=== PATIENT | male | born 1955 | race Caucasian/White ===

== ENCOUNTER 2019-08-25 07:37 | Outpatient (CLI) | payer OTHER, SELFPAY ==
[2019-08-25 07:47] LABS: Add Urine Microscopic? NO; Appearance Urine Clear (Clear); Basophils Absolute Auto 0.06 K/mm3 (0.00-0.10); Basophils Percent Auto 0.9 % (0.0-1.0); Bilirubin Urine Negative (Negative); Blood Urine Negative (Negative); Color Urine Yellow (Yellow); Eosinophils Absolute Auto 0.28 K/mm3 (0.02-0.50); Eosinophils Percent Auto 4.4 % (1.0-6.0); Glucose Urine UA Negative (Negative); Hematocrit 40.2 % (40.0-54.0); Hemoglobin 13.6 g/dL (14.0-18.0); Immature Granulocyte Absolute 0.02 K/mm3 (0.00-0.00); Immature Granulocyte Percent A 0.3 % (0.0-0.0); Ketones Urine Negative (Negative); Leukocyte Esterase Ur Negative (Negative); Lymphocytes Absolute Auto 1.75 K/mm3 (1.10-4.50); Lymphocytes Percent Auto 27.5 % (18.0-42.0); Mean Corpuscular HGB Conc 33.8 g/dL (32.0-36.0); Mean Corpuscular Hemoglobin 30.1 pg (27.0-31.0); Mean Corpuscular Volume 88.9 fL (78.0-102.0); Mean Platelet Volume 8.9 fl (8.7-11.0); Monocytes Absolute Auto 0.57 K/mm3 (0.10-0.90); Monocytes Percent Auto 8.9 % (2.0-11.0); Neutrophils Absolute Auto 3.7 K/mm3 (1.7-7.2); Nitrate Urine Negative (Negative); Platelet Count Result 145 K/mm3 (150-420); Protein Urine Negative (Negative); Red Blood Count 4.52 M/mm3 (4.70-6.10); Red Cell Distribution Width 12.1 % (11.6-14.4); Specific Grav Ur 1.015 (1.010-1.020); Urobilinogen Urine 0.2 mg/dL (0.2-1.0); White Blood Count 6.4 K/mm3 (4.8-10.8)
[2019-08-25 08:16] LABS: BNP 74.4 pg/mL (0-100)
[2019-08-25 08:54] LABS: Alanine Aminotransferase 26 U/L (16-63); Albumin Level 3.3 g/dL (3.4-5.0); Alkaline Phosphatase 57 U/L (46-116); Aspartate Amino Transferase 21 U/L (15-37); Bilirubin,Total 0.5 mg/dL (0.00-1.00); Blood Urea Nitrogen 16 mg/dL (7-18); Calcium 8.2 mg/dL (8.5-10.1); Carbon Dioxide 29 mmol/L (21-32); Chloride 106 mmol/L (98-108); Cholesterol 157 mg/dL (0-200); Creatine Kinase 167 U/L (39-308); Estimated Glomerular Filt Rate > 60; Glucose 97 mg/dL (70-99); HDL Direct 56 mg/dL (40-60); LDL Cholesterol Calculated 87 mg/dL (<130); Osmolality Calculated 295 mOsm/kg (285-295); Sodium 142 mmol/L (136-145); Total Protein 5.9 g/dL (6.4-8.2); Triglycerides 70 mg/dL (0-150)
== END 2019-08-25 07:38 | disposition home or self-care (01) ==
LOC: CHSLAB 07:39
PROVIDERS: PCP Internal Medicine; Visit Provider Internal Medicine
DX: E78.2 Mixed hyperlipidemia (principal); I10 Essential (primary) hypertension; R73.01 Impaired fasting glucose; I42.9 Cardiomyopathy, unspecified
CPT/HCPCS: 36415; 80053; 80061; 81003; 82550; 83036; 83880; 85025

== ENCOUNTER 2019-12-02 12:17 | Outpatient (CLI) | payer OTHER, SELFPAY ==
[2019-12-02 12:33] LABS: Basophils Absolute Auto 0.06 K/mm3 (0.00-0.10); Basophils Percent Auto 0.9 % (0.0-1.0); Eosinophils Absolute Auto 0.46 K/mm3 (0.02-0.50); Eosinophils Percent Auto 6.8 % (1.0-6.0); Hematocrit 42.2 % (40.0-54.0); Hemoglobin 14.2 g/dL (14.0-18.0); Immature Granulocyte Absolute 0.03 K/mm3 (0.00-0.00); Immature Granulocyte Percent A 0.4 % (0.0-0.0); Lymphocytes Absolute Auto 1.67 K/mm3 (1.10-4.50); Lymphocytes Percent Auto 24.8 % (18.0-42.0); Mean Corpuscular HGB Conc 33.6 g/dL (32.0-36.0); Mean Corpuscular Hemoglobin 30.1 pg (27.0-31.0); Mean Corpuscular Volume 89.4 fL (78.0-102.0); Mean Platelet Volume 9.2 fl (8.7-11.0); Monocytes Absolute Auto 0.57 K/mm3 (0.10-0.90); Monocytes Percent Auto 8.5 % (2.0-11.0); Neutrophils Absolute Auto 3.9 K/mm3 (1.7-7.2); Neutrophils Percent Auto 58.6 % (50.0-70.0); Platelet Count Result 187 K/mm3 (150-420); Red Blood Count 4.72 M/mm3 (4.70-6.10); Red Cell Distribution Width 12.2 % (11.6-14.4); White Blood Count 6.7 K/mm3 (4.8-10.8)
== END 2019-12-02 12:18 | disposition home or self-care (01) ==
LOC: CHSLAB 12:19
PROVIDERS: PCP Internal Medicine; Visit Provider Internal Medicine
DX: D63.8 Anemia in other chronic diseases classified elsewhere (principal)
CPT/HCPCS: 36415; 85025

== ENCOUNTER 2020-02-24 08:57 | Outpatient (CLI) | payer OTHER, SELFPAY ==
[2020-02-24 09:10] LABS: Basophils Absolute Auto 0.07 K/mm3 (0.00-0.10); Basophils Percent Auto 1.1 % (0.0-1.0); Eosinophils Absolute Auto 0.32 K/mm3 (0.02-0.50); Eosinophils Percent Auto 5.1 % (1.0-6.0); Hematocrit 40.5 % (40.0-54.0); Hemoglobin 13.7 g/dL (14.0-18.0); Immature Granulocyte Absolute 0.01 K/mm3 (0.00-0.00); Immature Granulocyte Percent A 0.2 % (0.0-0.0); Lymphocytes Absolute Auto 1.72 K/mm3 (1.10-4.50); Lymphocytes Percent Auto 27.4 % (18.0-42.0); Mean Corpuscular HGB Conc 33.8 g/dL (32.0-36.0); Mean Corpuscular Hemoglobin 29.7 pg (27.0-31.0); Mean Corpuscular Volume 87.9 fL (78.0-102.0); Mean Platelet Volume 9.3 fl (8.7-11.0); Monocytes Absolute Auto 0.73 K/mm3 (0.10-0.90); Monocytes Percent Auto 11.6 % (2.0-11.0); Neutrophils Absolute Auto 3.4 K/mm3 (1.7-7.2); Neutrophils Percent Auto 54.6 % (50.0-70.0); Platelet Count Result 152 K/mm3 (150-420); Red Blood Count 4.61 M/mm3 (4.70-6.10); Red Cell Distribution Width 12.4 % (11.6-14.4); White Blood Count 6.3 K/mm3 (4.8-10.8)
[2020-02-24 09:13] LABS: Add Urine Microscopic? NO; Appearance Urine Clear (Clear); Bilirubin Urine Negative (Negative); Blood Urine Negative (Negative); Color Urine Yellow (Yellow); Glucose Urine UA Negative (Negative); Ketones Urine Negative (Negative); Leukocyte Esterase Ur Negative LEU/UL (Negative); Nitrate Urine Negative (Negative); Protein Urine Negative (Negative); Urobilinogen Urine 0.2 mg/dL (0.2-1.0); pH Urine 5.5 (5.0-8.0)
[2020-02-24 09:31] LABS: BNP 16.2 pg/mL (0-100)
[2020-02-24 09:34] LABS: Hemoglobin A1C 5.8 % (<5.7)
[2020-02-24 09:54] LABS: MALB Creatinine Ratio 1.3 mg/g (0-30); Microalbumin Urine Random < 1.3 mg/L
[2020-02-24 10:07] LABS: Alanine Aminotransferase 31 U/L (16-63); Albumin Level 3.6 g/dL (3.4-5.0); Alkaline Phosphatase 57 U/L (46-116); Anion Gap 7 mmol/L (8-16); Aspartate Amino Transferase 20 U/L (15-37); Bilirubin,Total 0.7 mg/dL (0.00-1.00); Blood Urea Nitrogen 18 mg/dL (7-18); Calcium 8.6 mg/dL (8.5-10.1); Carbon Dioxide 29 mmol/L (21-32); Chloride 104 mmol/L (98-108); Cholesterol 172 mg/dL (0-200); Creatine Kinase 240 U/L (39-308); Estimated Glomerular Filt Rate > 60; Glucose 99 mg/dL (70-99); HDL Direct 57 mg/dL (40-60); LDL Cholesterol Calculated 98 mg/dL (<130); Osmolality Calculated 291 mOsm/kg (285-295); Potassium 4.3 mmol/L (3.5-5.1); Prostate Specific Antigen 0.8 ng/mL (< OR = 4.0); Sodium 140 mmol/L (136-145); Total Protein 6.5 g/dL (6.4-8.2); Triglycerides 83 mg/dL (0-150)
== END 2020-02-24 08:58 | disposition home or self-care (01) ==
LOC: CHSLAB 08:59
PROVIDERS: PCP Internal Medicine; Visit Provider Internal Medicine
DX: E78.5 Hyperlipidemia, unspecified (principal); I10 Essential (primary) hypertension; R73.01 Impaired fasting glucose; D63.8 Anemia in other chronic diseases classified elsewhere; Z12.5 Encounter for screening for malignant neoplasm of prostate; I42.9 Cardiomyopathy, unspecified
CPT/HCPCS: 36415; 80053; 80061; 81003; 82043; 82550; 83036; 83880; 84153; 85025; G0103

== ENCOUNTER 2020-05-16 11:28 | Outpatient (CLI) | payer OTHER, SELFPAY ==
[2020-05-16] MEDS: diphenhydrAMINE HCl CAP 25 MG CAPSULE PO (13:19)
[2020-05-16] MEDS: ACETAMINOPHEN 325 MG TABLET 650 MG PO (13:19)
[2020-05-16] MEDS: FAMOTIDINE 20 MG TABLET PO (13:20)
[2020-05-16 13:30] VITALS: BP 108/78; PULSE 62; RESP 18; TEMP 36.6; O2SAT 97
[2020-05-16] MEDS: [UNRECOGNIZED DRUG - OTHER] 250 MG IVPB (13:30)
[2020-05-16 14:35] VITALS: BP 124/78; PULSE 62; RESP 16; TEMP 36.6; O2SAT 95
[2020-05-16 15:20] VITALS: BP 118/70; PULSE 62; RESP 18; TEMP 36.8; O2SAT 97
== END 2020-05-16 11:29 | disposition home or self-care (01) ==
LOC: CHSTREATRM 11:30
PROVIDERS: PCP Internal Medicine; Visit Provider Internal Medicine
DX: Z23 Encounter for immunization (principal); U07.1 COVID-19
CPT/HCPCS: A9270; J7050; M0239; M0243; Q0243

== ENCOUNTER 2020-05-30 12:53 | Outpatient (CLI) | payer OTHER, SELFPAY ==
--- NOTE | ~2020-05-30 | CT_ITS ---
EXAMINATION: CTA chest PE protocol DATE: 05/30/2020 16:56 INDICATION: Shortness of breath, cough. Elevated d-dimer. Recent Covid diagnosis. TECHNIQUE: Computed tomography angiography (CTA) of the chest was performed with 100 mL Omnipaque-350 intravenous contrast timed to evaluate the pulmonary arteries. Coronal maximum intensity projection 3D-reconstructions were created by the technologist. Automated exposure control and iterative reconst ruction technique were employed. Exam dose: 494.85 mGy-cm total exam DLP. COMPARISON: 05/30/2020 2 view chest 04/28/2018 CT thorax FINDINGS: There is diagnostic contrast enhancement of the pulmonary arteries and no evidence of pulmo nary embolism. No thoracic aortic aneurysm or dissection. Normal heart size. Coronary artery calcification. No pericardial effusion. Left-sided pacemaker device with leads in right atrium, right ventricle and coronary sinus. No hilar or mediastinal mass lesion or lymphadenopathy. Emphysematous changes are again noted. Bullous changes noted in the apices and upper lungs in particu lar, right greater than left. Mild atelectasis in the dependent lower lobes. Small sliding hiatal hernia. Normal morphology of the adrenal glands. IMPRESSION: No CT evidence for pulmonary embolus a Emphysema Triple lead left-sided pacemaker device Small sliding hiatal hernia Reviewed, dictated and finalized at [facility]. Reviewed, dictated and finalized at location A.
--- NOTE | ~2020-05-30 | XR_ITS ---
XR chest 2V DATE: 05/30/2020 13:28 INDICATION: Shortness of breath TECHNIQUE: 2 views COMPARISON: 06/06/2015 2 view chest 04/28/2018 CT thorax FINDINGS: Moderate bilateral hyperinflation consistent with COPD. No pulmonary infiltrate or consolid ation, pleural effusion or pulmonary vascular congestion or pneumothorax. Normal heart size. Left-sided defibrillator/pacemaker device with leads overlying right atrium, right ventricle and coronary sinus. Diffuse osteopenia. IMPRESSION: COPD Triple lead defibrillator/pacemaker device Reviewed, dictated and finalized at location A.
[2020-05-30 13:12] LABS: Basophils Absolute Auto 0.07 K/mm3 (0.00-0.10); Basophils Percent Auto 1.1 % (0.0-1.0); Eosinophils Absolute Auto 0.27 K/mm3 (0.02-0.50); Eosinophils Percent Auto 4.4 % (1.0-6.0); Hematocrit 41.5 % (40.0-54.0); Hemoglobin 13.8 g/dL (14.0-18.0); Immature Granulocyte Absolute 0.02 K/mm3 (0.00-0.00); Immature Granulocyte Percent A 0.3 % (0.0-0.0); Lymphocytes Absolute Auto 1.54 K/mm3 (1.10-4.50); Lymphocytes Percent Auto 25.2 % (18.0-42.0); Mean Corpuscular HGB Conc 33.3 g/dL (32.0-36.0); Mean Corpuscular Hemoglobin 29.1 pg (27.0-31.0); Mean Corpuscular Volume 87.6 fL (78.0-102.0); Mean Platelet Volume 9.2 fl (8.7-11.0); Monocytes Absolute Auto 0.57 K/mm3 (0.10-0.90); Monocytes Percent Auto 9.3 % (2.0-11.0); Neutrophils Absolute Auto 3.7 K/mm3 (1.7-7.2); Neutrophils Percent Auto 59.7 % (50.0-70.0); Platelet Count Result 226 K/mm3 (150-420); Red Blood Count 4.74 M/mm3 (4.70-6.10); Red Cell Distribution Width 12.2 % (11.6-14.4); White Blood Count 6.1 K/mm3 (4.8-10.8)
[2020-05-30 13:23] LABS: Add Urine Microscopic? NO; Appearance Urine Clear (Clear); Bilirubin Urine Negative (Negative); Blood Urine Negative (Negative); Color Urine Yellow (Yellow); Glucose Urine UA Negative (Negative); Ketones Urine Negative (Negative); Leukocyte Esterase Ur Negative (Negative); Nitrate Urine Negative (Negative); Protein Urine Negative (Negative); Urobilinogen Urine 0.2 mg/dL (0.2-1.0)
[2020-05-30 13:28] LABS: Alanine Aminotransferase 26 U/L (16-63); Albumin Level 3.3 g/dL (3.4-5.0); Alkaline Phosphatase 70 U/L (46-116); Anion Gap 7 mmol/L (8-16); Aspartate Amino Transferase 17 U/L (15-37); Bilirubin,Total 0.6 mg/dL (0.00-1.00); Blood Urea Nitrogen 13 mg/dL (7-18); Carbon Dioxide 29 mmol/L (21-32); Chloride 102 mmol/L (98-108); Estimated Glomerular Filt Rate > 60; Glucose 104 mg/dL (70-99); Osmolality Calculated 286 mOsm/kg (285-295); Potassium 4.4 mmol/L (3.5-5.1); Sodium 138 mmol/L (136-145)
[2020-05-30 13:30] LABS: BNP 54.7 pg/mL (0-100)
[2020-05-30 13:31] LABS: D Dimer 0.91 mg/L (0.19-0.50)
== END 2020-05-30 12:54 | disposition home or self-care (01) ==
PROVIDERS: PCP Internal Medicine; Visit Provider Internal Medicine
DX: R06.02 Shortness of breath (principal); Z86.16 Personal history of COVID-19; R79.1 Abnormal coagulation profile; R53.81 Other malaise; R10.9 Unspecified abdominal pain
CPT/HCPCS: 36415; 71046; 71275; 80053; 81003; 83880; 85025; 85380; Q9967

== ENCOUNTER 2020-06-27 12:32 | Outpatient (CLI) | payer OTHER, SELFPAY ==
--- NOTE | ~2020-06-27 | XR_ITS ---
EXAMINATION: XR chest 2V DATE: 06/27/2020 17:36 INDICATION: Shortness of breath. Cough. COVID-19 pneumonia in April. TECHNIQUE: Frontal and lateral views of the chest were obtained. COMPARISON: Chest 2 views 05/30/2020, chest CT 05/30/2020 FINDINGS: The lungs are hyperexpanded with lucencies, consistent with emphysema. There is mild scarri ng at the lung apices. A calcified right lung nodule is consistent with old granulomatous disease. No pleural effusion or pneumothorax. The heart size is normal. There is a left chest pacer/defibrillato r with leads in the right atrium, right ventricle, and coronary sinus. There are suture anchors in ri ght glenoid. IMPRESSION: 1. Emphysema with mild scarring at the lung apices. Reviewed, dictated and finalized at location B.
[2020-06-27 13:27] LABS: Influenza A QL RT-PCR Negative (Negative); Influenza B QL RT-PCR Negative (Negative); SARS-CoV-2 RNA PCR Negative (Negative)
[2020-06-27 17:30] LABS: Add Urine Microscopic? YES; Appearance Urine Clear (Clear); Basophils Absolute Auto 0.05 K/mm3 (0.00-0.10); Basophils Percent Auto 0.7 % (0.0-1.0); Bilirubin Urine Negative (Negative); Blood Urine Negative (Negative); Color Urine Yellow (Yellow); Eosinophils Absolute Auto 0.44 K/mm3 (0.02-0.50); Glucose Urine UA 1+ (Negative); Hematocrit 40.5 % (40.0-54.0); Hemoglobin 13.7 g/dL (14.0-18.0); Immature Granulocyte Absolute 0.03 K/mm3 (0.00-0.00); Immature Granulocyte Percent A 0.4 % (0.0-0.0); Ketones Urine Negative (Negative); Leukocyte Esterase Ur Negative LEU/UL (Negative); Lymphocytes Absolute Auto 1.11 K/mm3 (1.10-4.50); Lymphocytes Percent Auto 15.1 % (18.0-42.0); Mean Corpuscular HGB Conc 33.8 g/dL (32.0-36.0); Mean Corpuscular Hemoglobin 29.7 pg (27.0-31.0); Mean Corpuscular Volume 87.7 fL (78.0-102.0); Mean Platelet Volume 9.5 fl (8.7-11.0); Monocytes Absolute Auto 0.92 K/mm3 (0.10-0.90); Monocytes Percent Auto 12.5 % (2.0-11.0); Neutrophils Absolute Auto 4.8 K/mm3 (1.7-7.2); Neutrophils Percent Auto 65.3 % (50.0-70.0); Nitrate Urine Negative (Negative); Platelet Count Result 154 K/mm3 (150-420); Protein Urine Negative (Negative); Red Blood Count 4.62 M/mm3 (4.70-6.10); Red Cell Distribution Width 13.1 % (11.6-14.4); Specific Grav Ur 1.015 (1.010-1.020); White Blood Count 7.4 K/mm3 (4.8-10.8)
[2020-06-27 17:41] LABS: Bacteria Urine Trace /hpf; RBC Urine 0-2 /hpf (0-2); WBC Urine 0-3 /hpf (0-3)
[2020-06-27 18:30] LABS: Alanine Aminotransferase 32 U/L (16-63); Albumin Level 3.5 g/dL (3.4-5.0); Alkaline Phosphatase 73 U/L (46-116); Anion Gap 7 mmol/L (8-16); Aspartate Amino Transferase 17 U/L (15-37); Bilirubin,Total 1.1 mg/dL (0.00-1.00); Blood Urea Nitrogen 15 mg/dL (7-18); CRP 7.3 mg/dL (0.0-0.9); Calcium 8.7 mg/dL (8.5-10.1); Carbon Dioxide 29 mmol/L (21-32); Chloride 101 mmol/L (98-108); Estimated Glomerular Filt Rate > 60; Free T3 2.57 pg/mL (2.18-3.98); Free T4 Free Thyroxine 0.89 ng/dL (0.76-1.46); Glucose 96 mg/dL (70-99); NT Pro B Type Natriuretic Pept 95 pg/mL (0-125); Osmolality Calculated 284 mOsm/kg (285-295); Potassium 4.2 mmol/L (3.5-5.1); Sodium 137 mmol/L (136-145); Thyroid Stimulating Hormone 1.31 uIU/mL (0.36-3.74); Total Protein 6.8 g/dL (6.4-8.2); Vitamin B12 393 pg/mL (193-986)
[2020-06-27 18:43] LABS: Erythrocyte Sedimentation Rate 38 mm/hr (0-20)
== END 2020-06-27 12:33 | disposition home or self-care (01) ==
PROVIDERS: PCP Internal Medicine; Visit Provider Internal Medicine
DX: R06.00 Dyspnea, unspecified (principal); R61 Generalized hyperhidrosis; I50.9 Heart failure, unspecified; R26.89 Other abnormalities of gait and mobility; G62.9 Polyneuropathy, unspecified; R50.9 Fever, unspecified; Z20.822 Contact with and (suspected) exposure to COVID-19
CPT/HCPCS: 36415; 71046; 80053; 81001; 82607; 83880; 84439; 84443; 84481; 85025; 85652; 86140; 87502; C9803; U0003; U0005

== ENCOUNTER 2020-06-29 07:08 | Outpatient (CLI) | payer OTHER, SELFPAY ==
--- NOTE | ~2020-06-29 | CT_ITS ---
EXAMINATION: CT brain wo/w con DATE: 06/29/2020 08:09 INDICATION: Dizziness. Unsteady on feet. Left upper extremity weakness. TECHNIQUE: Computed tomography (CT) of the head was performed without and subsequently with 100 cc Om nipaque 350 intravenous contrast. The mA was adjusted according to patient size. Iterative reconstruc tion technique was employed. Exam dose: 1059.33 mGy-cm total exam DLP. COMPARISON: None FINDINGS: No intracranial mass lesion or hemorrhage or cerebrovascular accident. No midline shift or mass effect. Normal ventricular size. No subdural or epidural hematoma. The mastoid air cells and included paranasal sinuses are unremarkable. No fracture or bone destructio n of the cranial vault IMPRESSION: No significant abnormality Reviewed, dictated and finalized at [facility]. Reviewed, dictated and finalized at location A. IMPRESSION: No significant abnormality
== END 2020-06-29 07:09 | disposition home or self-care (01) ==
LOC: CHSIMG 07:10
PROVIDERS: PCP Internal Medicine; Visit Provider Internal Medicine
DX: R42 Dizziness and giddiness (principal); R26.81 Unsteadiness on feet; G45.9 Transient cerebral ischemic attack, unspecified
CPT/HCPCS: 70470; Q9967

== ENCOUNTER 2020-07-10 07:48 | Outpatient (CLI) | payer OTHER, SELFPAY ==
--- NOTE | 2020-07-10 07:55 | ECHO_ITS ---
Patient Info Name: Jhon Saldana Age: 65 years : 1955 Gender: Male Ht: 70 in Wt: 175 lbs BSA: 1.99 m2 HR: 64 bpm BP: 115 / 87 mmHg Heart Rhythm: Sinus Rhythm Technical Quality: Fair Exam Date: 07/10/2020 7:47 AM Exam Location: [facility] Patient Status: Outpatient Admit Date: 07/10/2020 Staff Ordering Physician: Sarita Hankins MD Courtesy Bus Driver: Lauryn Fam RDCS Attending Provider: Sarita Hankins MD Referring Physician: Cr JUNG; Exam Type: CA echo doppler color flow Study Info Indications Z95.0 - Presence of cardiac pacemaker I50.9 - Heart failure, unspecified Z86.73 - Personal history of transient ischemic attack (TIA), and cerebral infarction without residual deficits Complete two-dimensional, color flow and Doppler transthoracic echocardiogram is performed. Strain analysis performed. History/Risk Factors Hypertension: Yes Dyslipidemia: Yes Congenital Heart Disease (CHD): No Peripheral Arterial Disease (PAD): No Myocardial Infarction (GA): No Chronic Lung Disease: No Obesity: No Renal Disease: No Coronary Artery Disease (CAD) No Congestive Heart Failure (CHF): Hx CHF Cardiomyopathy/LV Systolic Dysfunction: No Diabetes Mellitus: No COPD: On Meds Tobacco Use: Former Cerebrovascular Disease: TIA Family History: Diabetes Mellitus, Coronary Artery Disease Deep Vein Thrombosis (DVT): None Dialysis: None Frailty Scale (CSHA): 2: Well Cardiac Arrest: No Prior Interventions Pacemaker: Yes Summary 1. Complete two-dimensional, color flow and Doppler transthoracic echocardiogram is performed. 2. Left ventricular chamber dimension is normal. 3. Left ventricular systolic function is normal, estimated at 55-60%. 4. There is mildly increased left ventricular wall thickness. 5. The left ventricular diastolic function is grade I diastolic dysfunction. 6. E/e' 12 is mildly elevated. 7. Global longitudinal strain is abnormal at -13.0%. 8. Linear artifact in right ventricle suggestive of catheter(s), pacemaker lead(s), or ICD lead(s). 9. Linear artifact in the right atrium suggestive of catheter(s), pacemaker lead(s), or ICD lead(s). 10. There is trace aortic valve regurgitation. 11. There is mild mitral valve regurgitation. Left Ventricle E/e' 12 is mildly elevated. Global longitudinal strain is abnormal at -13.0%. Left ventricular chamber dimension is normal. Left ventricular systolic function is normal, estimated at 55-60%. There is mildly increased left ventricular wall thickness. The left ventricular diastolic function is grade I diastolic dysfunction. Right Ventricle Right ventricular systolic function is normal and with normal TAPSE 2.1 cm.. Linear artifact in right ventricle suggestive of catheter(s), pacemaker lead(s), or ICD lead(s). Right ventricular chamber dimension is normal. Left Atria Left atrial chamber dimension is normal. Right Atria Linear artifact in the right atrium suggestive of catheter(s), pacemaker lead(s), or ICD lead(s). Right atrial chamber dimension is normal. Aortic Valve The aortic valve is trileaflet. There is no aortic valve stenosis. There is trace aortic valve regurgitation. Pulmonic Valve There is no pulmonic regurgitation. Mitral Valve There is no mitral valve stenosis. There is mild mitral valve regurgitation. Tricuspid Valve There is no tricuspid valve regurgitation.
--- NOTE | 2020-08-10 11:49 | WPDHOLTEREM ---
Holter/Event Monitor Holter/Event Monitor Date of procedure: 07/10/20 Holter/Event Procedure: Event Monitor Indications: TIA Conclusion: 1. 23 days event monitor between 07/10/20-08/08/20. There are 22 available transmissions for analysis. 2. Predominant rhythm is sinus rhythm with intermittent ventricular paced complexes. HR range 50-120 bpm; average 66 bpm. 3. There are intermittent premature supraventricular complexes with total burden of 3%. No supraventricular tachycardia. 4. There are frequent premature ventricular complexes with total burden of 12%. No ventricular tachycardia. 5. No significant pauses greater than 2 seconds. 6. Patient reports 3 episodes of symptoms of lightheadedness, dizziness and shortness of breath which demonstrate sinus rhythm, HR range 77-88 bpm.
== END 2020-07-10 07:49 | disposition home or self-care (01) ==
LOC: CHSIMG 07:50
PROVIDERS: PCP Internal Medicine; Visit Provider Internal Medicine
DX: G45.9 Transient cerebral ischemic attack, unspecified (principal); Z95.0 Presence of cardiac pacemaker; I50.9 Heart failure, unspecified
CPT/HCPCS: 93270; 93272; 93306

== ENCOUNTER 2020-09-29 08:21 | Outpatient (CLI) | payer OTHER, SELFPAY ==
[2020-09-29 08:35] LABS: Add Urine Microscopic? NO; Appearance Urine Clear (Clear); Basophils Absolute Auto 0.07 K/mm3 (0.00-0.10); Bilirubin Urine Negative (Negative); Blood Urine Negative (Negative); Color Urine Light Yellow (Yellow); Eosinophils Absolute Auto 0.55 K/mm3 (0.02-0.50); Eosinophils Percent Auto 7.5 % (1.0-6.0); Glucose Urine UA Negative (Negative); Hematocrit 42.4 % (40.0-54.0); Hemoglobin 14.3 g/dL (14.0-18.0); Immature Granulocyte Absolute 0.02 K/mm3 (0.00-0.00); Immature Granulocyte Percent A 0.3 % (0.0-0.0); Ketones Urine Negative (Negative); Leukocyte Esterase Ur Negative LEU/UL (Negative); Lymphocytes Absolute Auto 2.03 K/mm3 (1.10-4.50); Lymphocytes Percent Auto 27.6 % (18.0-42.0); Mean Corpuscular HGB Conc 33.7 g/dL (32.0-36.0); Mean Corpuscular Hemoglobin 30.1 pg (27.0-31.0); Mean Corpuscular Volume 89.3 fL (78.0-102.0); Mean Platelet Volume 9.3 fl (8.7-11.0); Monocytes Absolute Auto 0.65 K/mm3 (0.10-0.90); Monocytes Percent Auto 8.8 % (2.0-11.0); Neutrophils Percent Auto 54.8 % (50.0-70.0); Nitrate Urine Negative (Negative); Platelet Count Result 152 K/mm3 (150-420); Protein Urine Negative (Negative); Red Blood Count 4.75 M/mm3 (4.70-6.10); Urobilinogen Urine 0.2 mg/dL (0.2-1.0); White Blood Count 7.4 K/mm3 (4.8-10.8)
[2020-09-29 09:04] LABS: Creatinine Urine 56.81 mg/dL (40-278); MALB Creatinine Ratio 22.8 mg/g (0-30); Microalbumin Urine Random < 13.0 mg/L
[2020-09-29 09:05] LABS: Hemoglobin A1C 5.8 % (<5.7)
[2020-09-29 09:36] LABS: Alanine Aminotransferase 33 U/L (16-63); Albumin Level 3.8 g/dL (3.4-5.0); Alkaline Phosphatase 62 U/L (46-116); Anion Gap 10 mmol/L (8-16); Aspartate Amino Transferase 19 U/L (15-37); Bilirubin,Total 0.8 mg/dL (0.00-1.00); Blood Urea Nitrogen 18 mg/dL (7-18); Calcium 8.6 mg/dL (8.5-10.1); Carbon Dioxide 26 mmol/L (21-32); Chloride 105 mmol/L (98-108); Cholesterol 164 mg/dL (0-200); Estimated Glomerular Filt Rate > 60; Glucose 95 mg/dL (70-99); HDL Direct 59 mg/dL (40-60); LDL Cholesterol Calculated 88 mg/dL (<130); Osmolality Calculated 293 mOsm/kg (285-295); Potassium 4.1 mmol/L (3.5-5.1); Sodium 141 mmol/L (136-145); Total Protein 6.7 g/dL (6.4-8.2); Triglycerides 85 mg/dL (0-150)
== END 2020-09-29 08:22 | disposition home or self-care (01) ==
LOC: CHSLAB 08:24
PROVIDERS: PCP Internal Medicine; Visit Provider Internal Medicine
DX: R73.01 Impaired fasting glucose (principal); I10 Essential (primary) hypertension; E78.2 Mixed hyperlipidemia
CPT/HCPCS: 36415; 80053; 80061; 81003; 82043; 83036; 85025

== ENCOUNTER 2021-02-23 07:25 | Outpatient (CLI) | payer OTHER, SELFPAY ==
[2021-02-23 07:41] LABS: Add Urine Microscopic? NO; Appearance Urine Clear (Clear); Basophils Absolute Auto 0.09 K/mm3 (0.00-0.10); Basophils Percent Auto 1.3 % (0.0-1.0); Bilirubin Urine Negative (Negative); Blood Urine Negative (Negative); Color Urine Light Yellow (Yellow); Eosinophils Absolute Auto 0.51 K/mm3 (0.02-0.50); Eosinophils Percent Auto 7.4 % (1.0-6.0); Glucose Urine UA Negative (Negative); Hematocrit 45.2 % (40.0-54.0); Immature Granulocyte Absolute 0.02 K/mm3 (0.00-0.00); Immature Granulocyte Percent A 0.3 % (0.0-0.0); Ketones Urine Negative (Negative); Leukocyte Esterase Ur Negative (Negative); Lymphocytes Absolute Auto 1.72 K/mm3 (1.10-4.50); Lymphocytes Percent Auto 24.9 % (18.0-42.0); Mean Corpuscular HGB Conc 33.2 g/dL (32.0-36.0); Mean Corpuscular Hemoglobin 29.7 pg (27.0-31.0); Mean Corpuscular Volume 89.5 fL (78.0-102.0); Mean Platelet Volume 9.5 fl (8.7-11.0); Monocytes Absolute Auto 0.68 K/mm3 (0.10-0.90); Monocytes Percent Auto 9.9 % (2.0-11.0); Neutrophils Absolute Auto 3.9 K/mm3 (1.7-7.2); Neutrophils Percent Auto 56.2 % (50.0-70.0); Nitrate Urine Negative (Negative); Platelet Count Result 176 K/mm3 (150-420); Protein Urine Negative (Negative); Red Blood Count 5.05 M/mm3 (4.70-6.10); Specific Grav Ur 1.015 (1.010-1.020); Urobilinogen Urine 0.2 mg/dL (0.2-1.0); White Blood Count 6.9 K/mm3 (4.8-10.8)
[2021-02-23 07:51] LABS: Hemoglobin A1C 5.9 % (<5.7)
[2021-02-23 09:14] LABS: Alanine Aminotransferase 28 U/L (16-63); Albumin Level 3.8 g/dL (3.4-5.0); Alkaline Phosphatase 64 U/L (46-116); Anion Gap 8 mmol/L (8-16); Aspartate Amino Transferase 16 U/L (15-37); Bilirubin,Total 0.7 mg/dL (0.00-1.00); Blood Urea Nitrogen 20 mg/dL (7-18); Calcium 8.9 mg/dL (8.5-10.1); Carbon Dioxide 29 mmol/L (21-32); Chloride 102 mmol/L (98-108); Cholesterol 180 mg/dL (0-200); Estimated Glomerular Filt Rate 58; Ferritin 189 ng/mL (26-388); Free T3 3.35 pg/mL (2.18-3.98); Free T4 Free Thyroxine 0.85 ng/dL (0.76-1.46); Glucose 109 mg/dL (70-99); HDL Direct 56 mg/dL (40-60); Iron 77 ug/dL (65-175); LDL Cholesterol Calculated 105 mg/dL (<130); NT Pro B Type Natriuretic Pept 39 pg/mL (0-125); Osmolality Calculated 291 mOsm/kg (285-295); Potassium 4.6 mmol/L (3.5-5.1); Prostate Specific Antigen 0.8 ng/mL (< OR = 4.0); Sodium 139 mmol/L (136-145); Thyroid Stimulating Hormone 1.47 uIU/mL (0.36-3.74); Total Protein 6.9 g/dL (6.4-8.2); Triglycerides 97 mg/dL (0-150); Vitamin B12 515 pg/mL (193-986)
== END 2021-02-23 07:26 | disposition home or self-care (01) ==
LOC: CHSLAB 07:27
PROVIDERS: PCP Internal Medicine; Visit Provider Internal Medicine
DX: D64.9 Anemia, unspecified (principal); I10 Essential (primary) hypertension; E78.2 Mixed hyperlipidemia; R73.01 Impaired fasting glucose; I42.9 Cardiomyopathy, unspecified; Z12.5 Encounter for screening for malignant neoplasm of prostate
CPT/HCPCS: 36415; 80053; 80061; 81003; 82607; 82728; 83036; 83540; 83880; 84153; 84439; 84443; 84481; 85025; G0103

== ENCOUNTER 2021-03-25 10:15 | Outpatient (CLI) | payer OTHER, SELFPAY ==
--- NOTE | ~2021-03-25 | XR_ITS ---
EXAMINATION: XR ribs RT 2V w CXR 2V DATE: 03/25/2021 11:16 INDICATION: Lateral right upper rib pain post fall TECHNIQUE: PA and lateral views of the chest and 3 views of the right ribs were obtained. COMPARISON: Chest radiograph dated 06/27/2020 FINDINGS: Irregular cortical contours to the anterolateral right fourth-sixth ribs which is not evident on pieter ier CT dated 05/30/2020 suspicious for age indeterminate nondisplaced fractures. Unchanged old posteri or right 11th rib fracture. Emphysema with mild biapical pleural-parenchymal scarring. A couple small calcified nodules in the right upper lung zone consistent with old granulomatous disease. No other a irspace opacities, pulmonary edema, pleural effusion or pneumothorax. Cardiomediastinal silhouette is normal. Three lead pacemaker/AICD seen with leads projecting over the expected locations of the righ t atrial appendage, apex of the right ventricle and overlying the left ventricle likely having kalen sed the coronary sinus. Severe right glenohumeral osteoarthritis with suture anchors along the superi or glenoid consistent with prior labral repair. IMPRESSION: 1. Age-indeterminate anterolateral right fourth-sixth rib fractures new since 05/30/2020. 2. Emphysema. No acute cardiopulmonary disease. Reviewed, dictated and finalized at location A. NICAL SUPPORT TECHNICIAN IMPRESSION: 1. Age-indeterminate anterolateral right fourth-sixth rib fractures new since . 2. Emphysema. No acute cardiopulmonary disease.
== END 2021-03-25 10:16 | disposition home or self-care (01) ==
LOC: CHSIMG 10:18
PROVIDERS: PCP Internal Medicine; Visit Provider Internal Medicine
DX: R07.81 Pleurodynia (principal); S29.9XXA Unspecified injury of thorax, initial encounter
CPT/HCPCS: 71046; 71100

== ENCOUNTER 2021-06-18 14:52 | Outpatient (CLI) | payer OTHER, SELFPAY ==
[2021-06-18 15:22] LABS: Basophils Absolute Auto 0.05 K/mm3 (0.00-0.10); Basophils Percent Auto 0.9 % (0.0-1.0); Eosinophils Absolute Auto 0.36 K/mm3 (0.02-0.50); Eosinophils Percent Auto 6.5 % (1.0-6.0); Hematocrit 43.4 % (40.0-54.0); Hemoglobin 14.2 g/dL (14.0-18.0); Immature Granulocyte Absolute 0.02 K/mm3 (0.00-0.00); Immature Granulocyte Percent A 0.4 % (0.0-0.0); Lymphocytes Absolute Auto 1.28 K/mm3 (1.10-4.50); Lymphocytes Percent Auto 23.1 % (18.0-42.0); Mean Corpuscular HGB Conc 32.7 g/dL (32.0-36.0); Mean Corpuscular Hemoglobin 29.4 pg (27.0-31.0); Mean Corpuscular Volume 89.9 fL (78.0-102.0); Mean Platelet Volume 9.6 fl (8.7-11.0); Monocytes Absolute Auto 0.68 K/mm3 (0.10-0.90); Monocytes Percent Auto 12.3 % (2.0-11.0); Neutrophils Absolute Auto 3.2 K/mm3 (1.7-7.2); Neutrophils Percent Auto 56.8 % (50.0-70.0); Platelet Count Result 160 K/mm3 (150-420); Red Blood Count 4.83 M/mm3 (4.70-6.10); Red Cell Distribution Width 12.9 % (11.6-14.4); White Blood Count 5.6 K/mm3 (4.8-10.8)
[2021-06-18 15:45] LABS: Influenza Control Valid (Valid)
[2021-06-18 16:00] LABS: Alanine Aminotransferase 27 U/L (16-63); Albumin Level 3.5 g/dL (3.4-5.0); Alkaline Phosphatase 67 U/L (46-116); Amylase 39 U/L (25-115); Anion Gap 9 mmol/L (8-16); Aspartate Amino Transferase 17 U/L (15-37); Bilirubin,Total 0.9 mg/dL (0.00-1.00); Blood Urea Nitrogen 16 mg/dL (7-18); Calcium 8.3 mg/dL (8.5-10.1); Carbon Dioxide 26 mmol/L (21-32); Chloride 101 mmol/L (98-108); Estimated Glomerular Filt Rate > 60; Glucose 100 mg/dL (70-99); Lipase 116 U/L (73-393); Osmolality Calculated 283 mOsm/kg (285-295); Sodium 136 mmol/L (136-145); Total Protein 6.6 g/dL (6.4-8.2)
[2021-06-18 16:12] LABS: SARS-CoV-2 Ag Negative (Negative)
== END 2021-06-18 14:53 | disposition home or self-care (01) ==
PROVIDERS: PCP Internal Medicine; Visit Provider Internal Medicine
DX: R19.7 Diarrhea, unspecified (principal); R11.2 Nausea with vomiting, unspecified; J06.9 Acute upper respiratory infection, unspecified; Z20.822 Contact with and (suspected) exposure to COVID-19
CPT/HCPCS: 80053; 82150; 83690; 85025; 87426; 87804; C9803

== ENCOUNTER 2021-08-23 07:40 | Outpatient (CLI) | payer OTHER, SELFPAY ==
[2021-08-23 07:50] LABS: Basophils Absolute Auto 0.08 K/mm3 (0.00-0.10); Basophils Percent Auto 1.3 % (0.0-1.0); Eosinophils Absolute Auto 0.49 K/mm3 (0.02-0.50); Eosinophils Percent Auto 7.8 % (1.0-6.0); Hematocrit 43.8 % (40.0-54.0); Hemoglobin 14.6 g/dL (14.0-18.0); Immature Granulocyte Absolute 0.01 K/mm3 (0.00-0.00); Immature Granulocyte Percent A 0.2 % (0.0-0.0); Lymphocytes Absolute Auto 1.77 K/mm3 (1.10-4.50); Lymphocytes Percent Auto 28.2 % (18.0-42.0); Mean Corpuscular HGB Conc 33.3 g/dL (32.0-36.0); Mean Corpuscular Hemoglobin 29.7 pg (27.0-31.0); Mean Corpuscular Volume 89.2 fL (78.0-102.0); Mean Platelet Volume 9.2 fl (8.7-11.0); Monocytes Absolute Auto 0.65 K/mm3 (0.10-0.90); Monocytes Percent Auto 10.4 % (2.0-11.0); Neutrophils Absolute Auto 3.3 K/mm3 (1.7-7.2); Neutrophils Percent Auto 52.1 % (50.0-70.0); Platelet Count Result 172 K/mm3 (150-420); Red Blood Count 4.91 M/mm3 (4.70-6.10); Red Cell Distribution Width 12.9 % (11.6-14.4); White Blood Count 6.3 K/mm3 (4.8-10.8)
[2021-08-23 07:52] LABS: Add Urine Microscopic? NO; Appearance Urine Clear (Clear); Bilirubin Urine Negative (Negative); Blood Urine Negative (Negative); Color Urine Light Yellow (Yellow); Glucose Urine UA Negative (Negative); Ketones Urine Negative (Negative); Leukocyte Esterase Ur Negative (Negative); Nitrate Urine Negative (Negative); Protein Urine Negative (Negative); Urobilinogen Urine 0.2 mg/dL (0.2-1.0)
[2021-08-23 08:07] LABS: Hemoglobin A1C 5.7 % (<5.7)
[2021-08-23 08:16] LABS: Alanine Aminotransferase 30 U/L (16-63); Albumin Level 3.7 g/dL (3.4-5.0); Alkaline Phosphatase 60 U/L (46-116); Anion Gap 3 mmol/L (8-16); Aspartate Amino Transferase 20 U/L (15-37); Blood Urea Nitrogen 17 mg/dL (7-18); Calcium 8.4 mg/dL (8.5-10.1); Carbon Dioxide 31 mmol/L (21-32); Chloride 106 mmol/L (98-108); Cholesterol 177 mg/dL (0-200); Estimated Glomerular Filt Rate > 60; Glucose 101 mg/dL (70-99); HDL Direct 62 mg/dL (40-60); LDL Cholesterol Calculated 94 mg/dL (<130); NT Pro B Type Natriuretic Pept 87 pg/mL (0-125); Osmolality Calculated 291 mOsm/kg (285-295); Potassium 4.4 mmol/L (3.5-5.1); Sodium 140 mmol/L (136-145); Total Protein 6.8 g/dL (6.4-8.2); Triglycerides 104 mg/dL (0-150)
== END 2021-08-23 07:41 | disposition home or self-care (01) ==
LOC: CHSLAB 07:42
PROVIDERS: PCP Internal Medicine; Visit Provider Internal Medicine
DX: R73.01 Impaired fasting glucose (principal); I10 Essential (primary) hypertension; E78.2 Mixed hyperlipidemia; I42.9 Cardiomyopathy, unspecified
CPT/HCPCS: 36415; 80053; 80061; 81003; 83036; 83880; 85025

== ENCOUNTER 2021-09-12 12:29 | Emergency (ER) | payer OTHER, SELFPAY ==
[2021-09-12 12:48] VITALS: BP 121/81; PULSE 78; RESP 20; TEMP 36.3; O2SAT 98
--- NOTE | 2021-09-12 12:55 | ED.DIZZY ---
HPI - Dizziness General Chief Complaint: Dizziness Stated Complaint: low BP, dizzy, headache Time Seen by Provider: 09/12/21 12:39 Source: patient and RN notes reviewed Mode of arrival: ambulatory Limitations: no limitations History of Present Illness MD elicited complaint: lightheadedness Onset (ago): hour(s) (4) Timing: sudden onset Severity: moderate Description: lightheadedness and off-balance History of similar symptoms: Yes Exacerbating factors: standing Relieving factors: rest ( all of his symptoms have resolved since arriving in the ER) Associated symptoms: other ( dizziness headache then blurred vision) Related Data Home Medications Medication Instructions Recorded Confirmed aspirin 81 mg chewable tablet 81 mg PO DAILY 09/12/21 09/12/21 atorvastatin 40 mg tablet 40 mg PO DAILY 09/12/21 09/12/21 bupropion HCl (smoking deter) 150 150 mg PO BID 09/12/21 09/12/21 mg tablet,12 hr sustained-release(smoking deterrent) carvedilol 25 mg tablet 25 mg PO BID 09/12/21 09/12/21 ferrous sulfate 324 mg (65 mg 324 mg PO DAILY 09/12/21 09/12/21 iron) tablet,delayed release fluticasone fur. 100 mcg-umeclid 1 inh inhalation DAILY 09/12/21 09/12/21 62.5 mcg-vilant 25 mcg inhalat.powder (Trelegy Ellipta) lisinopril 10 mg tablet 10 mg PO DAILY 09/12/21 09/12/21 omeprazole 20 mg capsule,delayed 20 mg PO DAILY 09/12/21 09/12/21 release tamsulosin 0.4 mg capsule 0.4 mg PO DAILY 09/12/21 09/12/21 Allergies Allergy/AdvReac Type Severity Reaction Status Date / Time NKDA Allergy Mild Unknown Uncoded 09/12/21 12:57 Review of Systems Review of Systems: All systems reviewed & are unremarkable except as noted in HPI and below PMFSH Past Medical History Medical History (Updated 09/12/21 @ 14:20 by Nasim Moreno MD) BPH (benign prostatic hyperplasia) GERD (gastroesophageal reflux disease) Hyperlipidemia Hypertension Throat cancer Surgical History Surgical History (Updated 09/12/21 @ 13:21 by Nasim Moreno MD) History of permanent cardiac pacemaker placement Family History Family History (Updated 03/03/16 @ 12:31 by DOCTOR UNKNOWN) Other Family history of alcoholism Family history of cardiovascular disease Hypertension Social History Social History Smoking status: Former smoker Smoking end date: 02/16/14 Alcohol intake: current Exam Const: General: healthy appearing, no acute distress and alert Nutritional Appearance: well nourished Orientation/consciousness: patient oriented x3 Limitations: no limitations HENMT: Head: normal to inspection Eyes: Conjunctivae: conjunctivae normal Pupils: Equal, round and reactive pupils present EOM: EOMs intact bilaterally Neck: Neck: normal visual inspection Resp: Effort & Inspection: normal respiratory effort Auscultation: clear to auscultation bilaterally Cardio: Rate: regular rate Rhythm: regular rhythm GI: GI Palp: Yes Soft to palpation and Yes Tenderness to palpation present (GI) Auscultation: normal bowel sounds Back/Spine/Pelvis: Cervical Spine: cervical ROM normal Thoracic/Lumbar Spine: thoraco-lumbar ROM normal Skin: General skin exam: normal color Rashes: no rashes Neuro: General: patient oriented x3, moves all extremities, no focal motor deficits and CN's II-XI intact bilaterally Cranial nerves: Yes Nystagmus not present Speech: normal speech Gait exam (Neuro): Normal gait present Extrem: General: normal to inspection and no clubbing, cyanosis or edema Psych: Mental Status: mental status grossly normal Affect: normal affect Attitude: cooperative Course Course Emergency Course: I offered the patient IV fluid replacement he declined at this time. He says he will go home and increase his fluids. Vital Signs Vital signs: Vital Signs Temperature 36.3 C L 09/12/21 12:48 Pulse Rate 78 09/12/21 12:48 Respiratory Rate 20 09/12/21 12:48 Blood Pressure 121/81 09/12/21 12:48 Pulse Oximetry 98
[2021-09-12 13:21] LABS: Basophils Absolute Auto 0.07 K/mm3 (0.00-0.10); Basophils Percent Auto 0.8 % (0.0-1.0); Eosinophils Absolute Auto 0.31 K/mm3 (0.02-0.50); Eosinophils Percent Auto 3.4 % (1.0-6.0); Hematocrit 42.4 % (40.0-54.0); Hemoglobin 14.4 g/dL (14.0-18.0); Immature Granulocyte Absolute 0.03 K/mm3 (0.00-0.00); Immature Granulocyte Percent A 0.3 % (0.0-0.0); Lymphocytes Absolute Auto 1.25 K/mm3 (1.10-4.50); Lymphocytes Percent Auto 13.8 % (18.0-42.0); Mean Corpuscular Hemoglobin 29.9 pg (27.0-31.0); Mean Corpuscular Volume 88.1 fL (78.0-102.0); Mean Platelet Volume 9.6 fl (8.7-11.0); Monocytes Absolute Auto 0.56 K/mm3 (0.10-0.90); Monocytes Percent Auto 6.2 % (2.0-11.0); Neutrophils Absolute Auto 6.8 K/mm3 (1.7-7.2); Neutrophils Percent Auto 75.5 % (50.0-70.0); Platelet Count Result 172 K/mm3 (150-420); Red Blood Count 4.81 M/mm3 (4.70-6.10); Red Cell Distribution Width 12.6 % (11.6-14.4); White Blood Count 9.1 K/mm3 (4.8-10.8)
[2021-09-12 13:30] VITALS: BP 138/74; PULSE 60; RESP 20; O2SAT 97
[2021-09-12 13:58] LABS: Alanine Aminotransferase 26 U/L (16-63); Albumin Level 4.1 g/dL (3.4-5.0); Alkaline Phosphatase 67 U/L (46-116); Anion Gap 7 mmol/L (8-16); Aspartate Amino Transferase 22 U/L (15-37); Bilirubin,Total 1.3 mg/dL (0.00-1.00); Blood Urea Nitrogen 21 mg/dL (7-18); Calcium 9.1 mg/dL (8.5-10.1); Carbon Dioxide 26 mmol/L (21-32); Chloride 104 mmol/L (98-108); Estimated CRCL calculation 46 ml/min; Estimated Glomerular Filt Rate 47; Glucose 109 mg/dL (70-99); Magnesium 2.4 mg/dL (1.8-2.4); Osmolality Calculated 288 mOsm/kg (285-295); Potassium 4.8 mmol/L (3.5-5.1); Sodium 137 mmol/L (136-145); Thyroid Stimulating Hormone 1.21 uIU/mL (0.36-3.74); Total Protein 7.1 g/dL (6.4-8.2)
[2021-09-12 14:00] VITALS: BP 126/70; PULSE 60; RESP 20; O2SAT 96
[2021-09-12 14:31] VITALS: BP 113/84; PULSE 59; RESP 20; TEMP 36.2; O2SAT 93
== END 2021-09-12 14:32 | disposition home or self-care (01) ==
PROVIDERS: Emergency Provider Emergency Medicine; PCP Internal Medicine
DX: E86.0 Dehydration (principal); K21.9 Gastro-esophageal reflux disease without esophagitis; E78.5 Hyperlipidemia, unspecified; I10 Essential (primary) hypertension; Z87.891 Personal history of nicotine dependence
CPT/HCPCS: 36415; 80053; 83735; 84443; 85025; 99283

== ENCOUNTER 2021-09-13 10:49 | Outpatient (CLI) | payer OTHER, SELFPAY ==
[2021-09-13 11:01] LABS: Add Urine Microscopic? NO; Appearance Urine Clear (Clear); Bilirubin Urine Negative (Negative); Blood Urine Negative (Negative); Color Urine Yellow (Yellow); Glucose Urine UA Negative (Negative); Ketones Urine Negative (Negative); Leukocyte Esterase Ur Negative (Negative); Nitrate Urine Negative (Negative); Protein Urine Negative (Negative); Specific Grav Ur 1.015 (1.010-1.020); Urobilinogen Urine 0.2 mg/dL (0.2-1.0)
[2021-09-13 11:09] LABS: Anion Gap 10 mmol/L (8-16); Blood Urea Nitrogen 17 mg/dL (7-18); Calcium 8.7 mg/dL (8.5-10.1); Carbon Dioxide 26 mmol/L (21-32); Chloride 105 mmol/L (98-108); Estimated Glomerular Filt Rate > 60; Glucose 98 mg/dL (70-99); Osmolality Calculated 293 mOsm/kg (285-295); Potassium 4.8 mmol/L (3.5-5.1); Sodium 141 mmol/L (136-145)
== END 2021-09-13 10:50 | disposition home or self-care (01) ==
LOC: CHSLAB 10:51
PROVIDERS: PCP Internal Medicine; Visit Provider Internal Medicine
DX: E86.0 Dehydration (principal)
CPT/HCPCS: 36415; 80048; 81003

== ENCOUNTER 2021-09-24 10:17 | Outpatient (CLI) | payer OTHER, SELFPAY ==
--- NOTE | ~2021-09-24 | CT_ITS ---
EXAMINATION: CT lung screening DATE: 09/24/2021 10:30 INDICATION: History of tobacco dependence. COPD. TECHNIQUE: Computed tomography (CT) of the chest was performed without intravenous contrast. The dose -length product was 155.38 mGy-cm. Automated exposure control and iterative reconstruction technique were employed. COMPARISON: CT dated 05/30/2020 FINDINGS: Heart size normal. No significant pleural or pericardial effusion. There is atherosclerosis of the aorta, great vessels and coronary arteries. No evidence for aortic aneurysm. Small hiatal her henri. There are a few calcified granulomas of the lungs. The upper abdomen is unremarkable. CT chest d ated 05/30/2020 there is a somewhat linear shaped nodule in the right upper lobe which is new compared with prior examination measuring 1.9 x 0.5 cm on axial images. There is severe emphysema. There is a second nodule in the right upper lobe measuring 7 x 5 mm, new compared with prior examination. No en dobronchial lesions. No pneumothorax. No focal lytic or blastic lesions. No acute osseous abnormality . IMPRESSION: 1. Lung Rads category 4B, very suspicious: Recommend follow-up PET/CT scan. Tissue sampling is also a consideration, although this is less favored due to the severity of emphysema. Reviewed, dictated and finalized at location A. IMPRESSION: 1. Lung Rads category 4B, very suspicious: Recommend follow-up PET/CT scan. Tis mery sampling is also a consideration, although this is less favored due to the severity of emphysema.
== END 2021-09-24 10:18 | disposition home or self-care (01) ==
LOC: CHSIMG 10:18
PROVIDERS: PCP Internal Medicine; Visit Provider Internal Medicine
DX: Z12.2 Encounter for screening for malignant neoplasm of respiratory organs (principal); Z87.891 Personal history of nicotine dependence
CPT/HCPCS: 71271

== ENCOUNTER 2022-09-22 07:29 | Outpatient (CLI) | payer MEDICARE, SELFPAY ==
[2022-09-22 08:24] LABS: Basophils Absolute Auto 0.06 K/mm3 (0.00-0.10); Basophils Percent Auto 0.8 % (0.0-1.0); Eosinophils Absolute Auto 0.44 K/mm3 (0.02-0.50); Hematocrit 46.3 % (37.0-46.0); Hemoglobin 15.2 g/dL (12.4-15.3); Immature Granulocyte Absolute 0.03 K/mm3 (0.00-0.00); Immature Granulocyte Percent A 0.4 % (0.0-0.0); Lymphocytes Absolute Auto 1.61 K/mm3 (1.10-4.50); Lymphocytes Percent Auto 22.1 % (18.0-42.0); Mean Corpuscular HGB Conc 32.8 g/dL (32.0-36.0); Mean Corpuscular Hemoglobin 29.9 pg (27.0-31.0); Mean Corpuscular Volume 91.1 fL (78.0-102.0); Mean Platelet Volume 9.6 fl (8.7-11.0); Monocytes Absolute Auto 0.59 K/mm3 (0.10-0.90); Monocytes Percent Auto 8.1 % (2.0-11.0); Neutrophils Absolute Auto 4.6 K/mm3 (1.7-7.2); Neutrophils Percent Auto 62.6 % (50.0-70.0); Platelet Count Result 184 K/mm3 (150-420); Red Blood Count 5.08 M/mm3 (4.70-6.10); Red Cell Distribution Width 12.8 % (11.6-14.4); White Blood Count 7.3 K/mm3 (4.8-10.8)
[2022-09-22 08:26] LABS: Appearance Urine Clear (Clear); Bilirubin Urine Negative (Negative); Blood Urine Negative (Negative); Color Urine Light Yellow (Yellow); Glucose Urine UA 2+ (Negative); Ketones Urine Negative (Negative); Leukocyte Esterase Ur Negative LEU/UL (Negative); Nitrate Urine Negative (Negative); Protein Urine Negative (Negative); Urobilinogen Urine 0.2 mg/dL (0.2-1.0); pH Urine 5.5 (5.0-8.0)
[2022-09-22 08:32] LABS: Add Urine Microscopic? YES; Bacteria Urine None seen /hpf; RBC Urine None seen /hpf (0-2); WBC Urine None seen /hpf (0-3)
[2022-09-22 08:55] LABS: Alanine Aminotransferase 32 U/L (16-63); Albumin Level 3.6 g/dL (3.4-5.0); Alkaline Phosphatase 64 U/L (46-116); Anion Gap 9 mmol/L (8-16); Aspartate Amino Transferase 15 U/L (15-37); Bilirubin,Total 0.7 mg/dL (0.00-1.00); Blood Urea Nitrogen 21 mg/dL (7-18); Calcium 8.6 mg/dL (8.5-10.1); Carbon Dioxide 27 mmol/L (21-32); Chloride 104 mmol/L (98-108); Cholesterol 183 mg/dL (0-200); Creatine Kinase 74 U/L (39-308); Estimated Glomerular Filt Rate 57; Glucose 115 mg/dL (70-99); HDL Direct 64 mg/dL (40-60); LDL Cholesterol Calculated 87 mg/dL (<130); Osmolality Calculated 294 mOsm/kg (285-295); Potassium 4.3 mmol/L (3.5-5.1); Sodium 140 mmol/L (136-145); Total Protein 6.5 g/dL (6.4-8.2); Triglycerides 160 mg/dL (0-150)
[2022-09-22 08:59] LABS: Hemoglobin A1C 5.1 % (<5.7)
== END 2022-09-22 07:30 | disposition home or self-care (01) ==
LOC: CHSLAB 07:38
PROVIDERS: PCP Internal Medicine; Visit Provider Internal Medicine
DX: R73.01 Impaired fasting glucose (principal); N39.0 Urinary tract infection, site not specified; E78.2 Mixed hyperlipidemia
CPT/HCPCS: 36415; 80053; 80061; 81001; 82550; 83036; 85025

== ENCOUNTER 2022-10-03 10:22 | Outpatient (CLI) | payer MEDICARE, SELFPAY ==
--- NOTE | ~2022-10-03 | US_ITS ---
EXAMINATION: US carotid duplex BI DATE: 10/03/2022 10:45 INDICATION: Bilateral carotid bruits. TECHNIQUE: Grayscale, color Doppler, and pulsed Doppler images of the cervical carotid arteries were obtained. The degree of vessel stenosis is placed in one of the following categories: normal, <50%, 5 0-69%, >=70% but less than near-occlusion, near-occlusion, or total occlusion. Note that percent sten osis relative to normal distal artery lumen diameter is indirectly measured from velocity measurement s as described by Prabhakar, et al. Radiology 2003; 229:340-346. COMPARISON: Ultrasound 03/18/2013 FINDINGS: RIGHT: The right common carotid artery (CCA) peak systolic velocity (PSV) is 91 cm/s. The right internal car otid artery (ICA) PSV is 84 cm/s. The right ICA end-diastolic velocity (EDV) is 28 cm/s. The right IC A/CCA PSV ratio is 0.9. Grayscale and color Doppler images yield an estimate of <50% diameter reducti on from plaque in the ICA. There is antegrade flow in the right vertebral artery. LEFT: The left CCA PSV is 103 cm/s. The left ICA PSV is 77 cm/s. The left ICA EDV is 22 cm/s. The left ICA/ CCA PSV ratio is 0.8. Grayscale and color Doppler images yield an estimate of <50% diameter reduction from plaque in the ICA. There is antegrade flow in the left vertebral artery. IMPRESSION: 1. <50% stenosis in the right internal carotid artery. 2. <50% stenosis in the left internal carotid artery. Reviewed, dictated and finalized at location A.
== END 2022-10-03 10:23 | disposition home or self-care (01) ==
LOC: CHSIMG 10:25
PROVIDERS: PCP Internal Medicine; Visit Provider Internal Medicine
DX: R09.89 Other specified symptoms and signs involving the circulatory and respiratory systems (principal); I65.23 Occlusion and stenosis of bilateral carotid arteries
CPT/HCPCS: 93880

== ENCOUNTER 2023-03-31 07:52 | Outpatient (CLI) | payer MEDICARE, SELFPAY ==
[2023-03-31 08:02] LABS: Appearance Urine Clear (Clear); Basophils Absolute Auto 0.08 K/mm3 (0.00-0.10); Basophils Percent Auto 1.3 % (0.0-1.0); Bilirubin Urine Negative (Negative); Blood Urine Negative (Negative); Color Urine Light Yellow (Yellow); Eosinophils Absolute Auto 0.47 K/mm3 (0.02-0.50); Eosinophils Percent Auto 7.6 % (1.0-6.0); Glucose Urine UA 3+ (Negative); Hematocrit 45.1 % (37.0-46.0); Hemoglobin 14.9 g/dL (12.4-15.3); Immature Granulocyte Absolute 0.02 K/mm3 (0.00-0.00); Immature Granulocyte Percent A 0.3 % (0.0-0.0); Ketones Urine Negative (Negative); Leukocyte Esterase Ur Negative (Negative); Lymphocytes Percent Auto 25.9 % (18.0-42.0); Mean Corpuscular Hemoglobin 29.2 pg (27.0-31.0); Mean Corpuscular Volume 88.4 fL (78.0-102.0); Mean Platelet Volume 9.1 fl (8.7-11.0); Monocytes Absolute Auto 0.62 K/mm3 (0.10-0.90); Neutrophils Absolute Auto 3.4 K/mm3 (1.7-7.2); Neutrophils Percent Auto 54.9 % (50.0-70.0); Nitrate Urine Negative (Negative); Platelet Count Result 159 K/mm3 (150-420); Protein Urine Negative (Negative); Red Cell Distribution Width 12.8 % (11.6-14.4); Urobilinogen Urine 0.2 mg/dL (0.2-1.0); White Blood Count 6.2 K/mm3 (4.8-10.8)
[2023-03-31 08:07] LABS: Add Urine Microscopic? YES; Bacteria Urine None seen /hpf; RBC Urine None seen /hpf (0-2); WBC Urine None seen /hpf (0-3)
[2023-03-31 08:08] LABS: Creatinine Urine 69.28 mg/dL (40-278); MALB Creatinine Ratio 18.7 mg/g (0-30); Microalbumin Urine Random < 13.0 mg/L
[2023-03-31 08:15] LABS: Hemoglobin A1C 5.5 % (<5.7)
[2023-03-31 09:18] LABS: Alanine Aminotransferase 40 U/L (16-63); Albumin Level 3.6 g/dL (3.4-5.0); Alkaline Phosphatase 55 U/L (46-116); Anion Gap 8 mmol/L (8-16); Aspartate Amino Transferase 24 U/L (15-37); Bilirubin,Total 0.9 mg/dL (0.00-1.00); Blood Urea Nitrogen 18 mg/dL (7-18); Calcium 8.5 mg/dL (8.5-10.1); Carbon Dioxide 28 mmol/L (21-32); Chloride 104 mmol/L (98-108); Cholesterol 182 mg/dL (0-200); Creatine Kinase 165 U/L (39-308); Estimated Glomerular Filt Rate > 60; Free T4 Free Thyroxine 0.83 ng/dL (0.76-1.46); Glucose 122 mg/dL (70-99); HDL Direct 62 mg/dL (40-60); LDL Cholesterol Calculated 99 mg/dL (<130); NT Pro B Type Natriuretic Pept 73 pg/mL (0-125); Osmolality Calculated 292 mOsm/kg (285-295); Potassium 4.4 mmol/L (3.5-5.1); Prostate Specific Antigen 1.2 ng/mL (< OR = 4.0); Sodium 140 mmol/L (136-145); Thyroid Stimulating Hormone 1.96 uIU/mL (0.36-3.74); Total Protein 6.4 g/dL (6.4-8.2); Triglycerides 107 mg/dL (0-150)
== END 2023-03-31 07:53 | disposition home or self-care (01) ==
LOC: CHSLAB 07:54
PROVIDERS: PCP Internal Medicine; Visit Provider Internal Medicine
DX: N40.1 Benign prostatic hyperplasia with lower urinary tract symptoms (principal); I42.9 Cardiomyopathy, unspecified; E78.2 Mixed hyperlipidemia; I10 Essential (primary) hypertension; R73.01 Impaired fasting glucose; R06.00 Dyspnea, unspecified; Z12.5 Encounter for screening for malignant neoplasm of prostate
CPT/HCPCS: 36415; 80053; 80061; 81001; 82043; 82550; 83036; 83880; 84153; 84439; 84443; 85025; G0103

== ENCOUNTER 2023-06-16 00:55 | Day surgery (SDC) | payer MEDICARE, SELFPAY ==
[2023-06-02 14:32] VITALS: BMI 26.6
[2023-06-16 09:52] VITALS: BP 147/95; PULSE 63; RESP 18; TEMP 36.4; O2SAT 99
[2023-06-16] MEDS: LACTATED RINGERS 1,000 ML 150 ML IV CONT (10:13)
--- NOTE | 2023-06-16 10:32 | WPDANESEPPF ---
Anes - Initial Pre Proc Eval Procedure: Operation Date: 06/16/23 11:00 Proposed Procedures p Esophagogastroduodenoscopy - Yoni Barron MD Date/Time: 06/16/23 10:32 Surgeon: Yoni Barron MD Pre Op Diagnosis: Multani's Esophagus Patient Data Age: 68 Gender: M Height: 1.78 m Weight: 80.9 kg Last Vital Signs Temp 97.5 F L 06/16/23 09:52 Pulse 63 06/16/23 09:52 Resp 18 06/16/23 09:52 BP 147/95 H 06/16/23 09:52 Pulse Ox 99 06/16/23 09:52 O2 Del Method Room Air 06/16/23 09:52 Allergies Allergy/AdvReac Type Severity Reaction Status Date / Time NKDA Allergy Mild Unknown Uncoded 06/16/23 09:51 Home Medications Medication Instructions Recorded Confirmed Type aspirin 81 mg chewable tablet 81 mg PO DAILY 09/12/21 06/02/23 History atorvastatin 40 mg tablet 40 mg PO DAILY 09/12/21 06/02/23 History bupropion HCl (smoking deter) 150 150 mg PO BID 09/12/21 06/02/23 History mg tablet,12 hr sustained-release(smoking deterrent) carvedilol 25 mg tablet 25 mg PO BID 09/12/21 06/02/23 History ferrous sulfate 324 mg (65 mg 324 mg PO DAILY 09/12/21 06/02/23 History iron) tablet,delayed release fluticasone fur. 100 mcg-umeclid 1 inh inhalation DAILY 09/12/21 06/02/23 History 62.5 mcg-vilant 25 mcg inhalat.powder (Trelegy Ellipta) lisinopril 10 mg tablet 10 mg PO DAILY 09/12/21 06/02/23 History omeprazole 20 mg capsule,delayed 20 mg PO DAILY 09/12/21 06/02/23 History release tamsulosin 0.4 mg capsule 0.4 mg PO DAILY 09/12/21 06/02/23 History dapagliflozin propanediol 10 mg 10 mg PO DAILY 06/02/23 06/16/23 History tablet (Farxiga) Patient hx anesthesia problems: none Family hx anesthesia problems: none Results Review: All pre-operative results and documents have been reviewed as part of the pre-operative evaluation. [facility] Past Medical History Medical History (Updated 09/13/21 @ 00:00 by Jameel Chicas) BPH (benign prostatic hyperplasia) GERD (gastroesophageal reflux disease) Hyperlipidemia Hypertension Throat cancer Surgical History Surgical History (Updated 09/12/21 @ 13:21 by Nasim Moreno, ) History of permanent cardiac pacemaker placement Family History Family History (Updated 03/03/16 @ 12:31 by DOCTOR UNKNOWN) Other Family history of alcoholism Family history of cardiovascular disease Hypertension Social History Social History Smoking status: Former smoker Tobacco type: cigarettes Smoking end date: 02/16/14 Alcohol intake: current Alcohol use details: socially Substance use: never Substance use type: does not use Living arrangements: with family Spiritual care concerns: No Anes - Eval Final PreProcedure Day of Procedure 06/16/23 10:32 Patient weight: normal Heart: regular rate and rhythm Lungs: clear to auscultation Airway: Mallampati scale class II Neurological: alert and oriented Last oral intake: >/= 8 hours ASA classification: III Emergent: no Anesthetic plan: proceed Anesthesia type and monitoring: general GIVS and standard monitoring Results Review: All pre-operative results and documents have been reviewed as part of the pre-operative evaluation. Informed Consent: The patient's anesthetic plan and its attendant risks and benefits were discussed with the patient/family/POA. Questions were solicited and answers provided to the satisfaction of the patient/family/POA.
--- NOTE | 2023-06-16 11:00 | PM.HPGS ---
History of Present Illness History of Present Illness Consent: Risks, benefits, and alternatives have been discussed and questions answered. Patient agrees to proceed with procedure. Chief complaint: Heath's Esophagus Narrative: Jhon Saldana is a 68 year old male with gerd on ppi daily and heath's, last egd about 3 years ago. He is doing ok as long as he is using omeprazole daily Review of Systems Review of Systems: All systems reviewed & are unremarkable except as noted in HPI and below PMFSH Past Medical History Medical History (Updated 06/16/23 @ 11:01 by Yoni Barron MD) Heath esophagus BPH (benign prostatic hyperplasia) GERD (gastroesophageal reflux disease) Hyperlipidemia Hypertension Throat cancer Surgical History Surgical History (Updated 09/12/21 @ 13:21 by Nasim Moreno, ) History of permanent cardiac pacemaker placement Family History Family History (Updated 03/03/16 @ 12:31 by DOCTOR UNKNOWN) Other Family history of alcoholism Family history of cardiovascular disease Hypertension Social History Social History Smoking status: Former smoker Tobacco type: cigarettes Smoking end date: 02/16/14 Alcohol intake: current Alcohol use details: socially Substance use: never Substance use type: does not use Living arrangements: with family Spiritual care concerns: No Meds Home Medications and Allergies Home Medications Medication Instructions Recorded Confirmed Type aspirin 81 mg chewable tablet 81 mg PO DAILY 09/12/21 06/02/23 History atorvastatin 40 mg tablet 40 mg PO DAILY 09/12/21 06/02/23 History bupropion HCl (smoking deter) 150 150 mg PO BID 09/12/21 06/02/23 History mg tablet,12 hr sustained-release(smoking deterrent) carvedilol 25 mg tablet 25 mg PO BID 09/12/21 06/02/23 History ferrous sulfate 324 mg (65 mg 324 mg PO DAILY 09/12/21 06/02/23 History iron) tablet,delayed release fluticasone fur. 100 mcg-umeclid 1 inh inhalation DAILY 09/12/21 06/02/23 History 62.5 mcg-vilant 25 mcg inhalat.powder (Trelegy Ellipta) lisinopril 10 mg tablet 10 mg PO DAILY 09/12/21 06/02/23 History omeprazole 20 mg capsule,delayed 20 mg PO DAILY 09/12/21 06/02/23 History release tamsulosin 0.4 mg capsule 0.4 mg PO DAILY 09/12/21 06/02/23 History dapagliflozin propanediol 10 mg 10 mg PO DAILY 06/02/23 06/16/23 History tablet (Farxiga) Allergies Allergy/AdvReac Type Severity Reaction Status Date / Time NKDA Allergy Mild Unknown Uncoded 06/16/23 09:51 Vital Signs Vital Signs - 24 hr 06/16/23 09:52 Temperature 97.5 F L Pulse Rate 63 Respiratory Rate 18 Blood Pressure 147/95 H Pulse Oximetry 99 Oxygen Delivery Room Air Exam Const: General: comfortable and no acute distress HENMT: Face/Nose/Sinus: Normal nares present Eyes: General: appearance normal, both eyes and all related structures Neck: Neck: no JVD Resp: Auscultation: clear to auscultation bilaterally Cardio: Rate: regular rate Rhythm: regular rhythm GI: Inspection: non-distended GI Palp: Yes Soft to palpation Skin: General skin exam: normal color Neuro: General: gait normal Speech: normal speech Extrem: General: normal to inspection Psych: Mental Status: mental status grossly normal Assessment and Plan Assessment and plan (1) GERD (gastroesophageal reflux disease): Code(s): K21.9 - Gastro-esophageal reflux disease without esophagitis Status: Acute Assessment and Plan: well on ppi (2) Heath esophagus: Code(s): K22.70 - Heath's esophagus without dysplasia Status: Acute Assessment and Plan: egd
[2023-06-16 11:16] VITALS: BP 137/72; PULSE 60; RESP 18; O2SAT 96
[2023-06-16 11:26] VITALS: BP 122/75; PULSE 68; RESP 20; O2SAT 94
[2023-06-16 11:36] VITALS: BP 141/85; PULSE 60; RESP 17; O2SAT 96
== END 2023-06-16 11:39 | disposition home or self-care (01) ==
PROVIDERS: PCP Internal Medicine; Visit Provider Internal Medicine Gastroenterology
PROC: 0DJ08ZZ Inspection of Upper Intestinal Tract, Via Natural or Artificial Opening Endoscopic (ICD-10-PCS; CPT 43235; principal; 2023-06-16 11:00)
DX: K22.70 Barrett's esophagus without dysplasia (principal); K29.70 Gastritis, unspecified, without bleeding; K44.9 Diaphragmatic hernia without obstruction or gangrene; K21.9 Gastro-esophageal reflux disease without esophagitis; I10 Essential (primary) hypertension; E78.5 Hyperlipidemia, unspecified; N40.0 Benign prostatic hyperplasia without lower urinary tract symptoms; Z95.0 Presence of cardiac pacemaker; Z85.819 Personal history of malignant neoplasm of unspecified site of lip, oral cavity, and pharynx; Z87.891 Personal history of nicotine dependence; Z79.84 Long term (current) use of oral hypoglycemic drugs; Z79.82 Long term (current) use of aspirin
CPT/HCPCS: 43239; 88305; J2704; J7120

== ENCOUNTER 2023-09-30 07:32 | Outpatient (CLI) | payer MEDICARE, SELFPAY ==
[2023-09-30 07:48] LABS: Hemoglobin 14.7 g/dL (12.4-15.3); Mean Corpuscular HGB Conc 33.4 g/dL (32-36); Mean Corpuscular Hemoglobin 30.2 pg (27.0-31.0); Mean Corpuscular Volume 90.5 fL (78.0-102.0); Mean Platelet Volume 9.3 fl (8.7-11.0); Platelet Count Result 155 K/mm3 (150-420); Red Blood Count 4.86 M/mm3 (4.70-6.10); Red Cell Distribution Width 12.7 % (11.6-14.4); White Blood Count 6.2 K/mm3 (4.8-10.8)
[2023-09-30 07:49] LABS: Add Urine Microscopic? NO; Appearance Urine Clear (Clear); Bilirubin Urine Negative (Negative); Blood Urine Negative (Negative); Color Urine Light Yellow (Yellow); Glucose Urine UA 3+ (Negative); Ketones Urine Negative (Negative); Leukocyte Esterase Ur Negative (Negative); Nitrate Urine Negative (Negative); Protein Urine Negative (Negative); Specific Grav Ur 1.015 (1.010-1.020); Urobilinogen Urine 0.2 mg/dL (0.2-1.0)
[2023-09-30 08:08] LABS: Hemoglobin A1C 5.8 % (<5.7)
[2023-09-30 09:24] LABS: Alanine Aminotransferase 38 U/L (16-63); Albumin Level 3.5 g/dL (3.4-5.0); Alkaline Phosphatase 63 U/L (46-116); Anion Gap 6 mmol/L (4-12); Aspartate Amino Transferase 26 U/L (15-37); Bilirubin,Total 0.6 mg/dL (0.00-1.00); Blood Urea Nitrogen 17 mg/dL (7-18); Calcium 8.4 mg/dL (8.5-10.1); Carbon Dioxide 28 mmol/L (21-32); Chloride 104 mmol/L (98-108); Cholesterol 153 mg/dL (0-200); Creatine Kinase 219 U/L (39-308); Estimated Glomerular Filt Rate > 60; Free T3 2.97 pg/mL (2.18-3.98); Free T4 Free Thyroxine 0.89 ng/dL (0.76-1.46); Glucose 115 mg/dL (70-99); HDL Direct 60 mg/dL (40-60); LDL Cholesterol Calculated 82 mg/dL (<130); NT Pro B Type Natriuretic Pept 352 pg/mL (0-125); Osmolality Calculated 288 mOsm/kg (285-295); Potassium 4.4 mmol/L (3.5-5.1); Sodium 138 mmol/L (136-145); Thyroid Stimulating Hormone 1.68 uIU/mL (0.36-3.74); Total Protein 6.1 g/dL (6.4-8.2); Triglycerides 55 mg/dL (0-150)
== END 2023-09-30 07:33 | disposition home or self-care (01) ==
LOC: CHSLAB 07:35
PROVIDERS: PCP Internal Medicine; Visit Provider Internal Medicine
DX: I10 Essential (primary) hypertension (principal); E78.2 Mixed hyperlipidemia; R73.01 Impaired fasting glucose; I42.9 Cardiomyopathy, unspecified; I50.9 Heart failure, unspecified
CPT/HCPCS: 36415; 80053; 80061; 81003; 82550; 83036; 83880; 84439; 84443; 84481; 85027

== ENCOUNTER 2024-03-07 15:15 | Emergency (ER) | payer MEDICARE, SELFPAY ==
[2024-03-07] VITALS (8 sets, daily range): BP systolic 100–123; BP diastolic 54–86; PULSE 82–89; RESP 11–20; TEMP 36.7; O2SAT 90–98
--- NOTE | ~2024-03-07 | CT_ITS ---
Clinical indication:Post left upper lobectomy 10 days earlier, now with worsening pain with inspirati on lower COMPARISON: TECHNIQUE: Multiple contiguous axial images of the chest were performed without the administration of intravenous contrast. FINDINGS: LUNG:Postoperative change within the left hemithorax with volume loss. Interval development of a small left-sided pleural effusion. Patchy consolidation is also detected within the base of the left lower lobe. MEDIASTINUM:Postoperative change without significant lymphadenopathy. HEART:AICD wires. The heart is not enlarged. SOFT TISSUES OF THE CHEST: Punctate foci of air tracking along the left pectoralis musculature, and p osteriorly along the latissimus dorsi musculature, likely perioperative. BONES OF THE CHEST: Unremarkable IMPRESSION: Postoperative change with interval development of a small left-sided pleural effusion and patchy cons olidation within the base of the left lower lobe. Reviewed, dictated and finalized at location A. RUMENT TECH IMPRESSION: Postoperative change with interval development of a small left-sided pleural ef fusion and patchy consolidation within the base of the left lower lobe.
--- NOTE | 2024-03-07 15:40 | ECG_ITS ---
Test Date: 2024-03-07 15:51:08 Measurements Intervals Hunter Rate: 86 P: 38 HI: 104 QRS: -45 QRSD: 134 T: 103 QT: 381 QTc: 456 Interpretive Statements ELECTRONIC VENTRICULAR PACEMAKER ABNORMAL RHYTHM ECG No previous ECG available for comparison Electronically Signed On 03-07-2024 17:56:04 PARAOPTOMETRIC by Rafat Andrade M.D.
[2024-03-07 15:56] LABS: Eosinophils Absolute Auto 0.42 K/mm3 (0.02-0.50); Eosinophils Percent Auto 4.2 % (1.0-6.0); Hematocrit 39.4 % (37.0-46.0); Hemoglobin 12.7 g/dL (12.4-15.3); Immature Granulocyte Absolute 0.13 K/mm3 (0.00-0.00); Immature Granulocyte Percent A 1.3 % (0.0-0.0); Lymphocytes Absolute Auto 1.63 K/mm3 (1.10-4.50); Lymphocytes Percent Auto 16.1 % (18.0-42.0); Mean Corpuscular HGB Conc 32.2 g/dL (32-36); Mean Corpuscular Hemoglobin 28.2 pg (27.0-31.0); Mean Corpuscular Volume 87.4 fL (78.0-102.0); Mean Platelet Volume 8.7 fl (8.7-11.0); Monocytes Absolute Auto 0.82 K/mm3 (0.10-0.90); Monocytes Percent Auto 8.1 % (2.0-11.0); Neutrophils Percent Auto 69.3 % (50.0-70.0); Platelet Count Result 349 K/mm3 (150-420); Red Blood Count 4.51 M/mm3 (4.70-6.10); Red Cell Distribution Width 12.2 % (11.6-14.4); White Blood Count 10.1 K/mm3 (4.8-10.8)
[2024-03-07] MEDS: MORPHINE SULFATE (*CRX) 4 MG/ML INJ IM (16:11)
[2024-03-07] MEDS: BENZONATATE 100 MG CAPSULE 200 MG PO (16:11)
--- NOTE | 2024-03-07 16:13 | PC.NURSE ---
pt has returned from ct, is at bedside. pt has been medicated without difficulty. vss per monitor. nad noted. pt denies any needs or complaints. will continue to monitor.
[2024-03-07 16:17] LABS: Alanine Aminotransferase 76 U/L (16-63); Albumin Level 2.4 g/dL (3.4-5.0); Alkaline Phosphatase 103 U/L (46-116); Anion Gap 8 mmol/L (4-12); Aspartate Amino Transferase 35 U/L (15-37); Bilirubin,Total 0.3 mg/dL (0.00-1.00); Blood Urea Nitrogen 16 mg/dL (7-18); Calcium 8.6 mg/dL (8.5-10.1); Carbon Dioxide 28 mmol/L (21-32); Chloride 100 mmol/L (98-108); Estimated CRCL calculation 62 ml/min; Estimated Glomerular Filt Rate > 60; Glucose 113 mg/dL (70-99); NT Pro B Type Natriuretic Pept 121 pg/mL (0-125); Osmolality Calculated 284 mOsm/kg (285-295); Potassium 4.6 mmol/L (3.5-5.1); Sodium 136 mmol/L (136-145); Total Protein 6.6 g/dL (6.4-8.2)
[2024-03-07 16:27] LABS: Troponin I < 4.0 ng/L (0.00-60.4)
--- NOTE | 2024-03-07 17:52 | PC.NURSE ---
PT REPORTS HE IS READY TO GO HOME, THAT HIS PAIN HAS IMPROVED, HOWEVER DOES REMAIN. NAD NOTED. PT HAS AT BEDSIDE. PT IS AWAITING ERP DECISION. WILL CONTINUE TO MONITOR.
--- NOTE | 2024-03-07 18:10 | ED_ITS ---
HPI - Chest Pain General Chief Complaint: Chest Pain Stated Complaint: Chest Pain Time Seen by Provider: 03/07/24 15:21 Source: patient Mode of arrival: ambulatory Limitations: no limitations History of Present Illness HPI narrative: Patient is a 68-year-old male with a significant past medical history that presents today for chest pain his left side. Patient recently had a lobectomy on the left upper lobe of his lung 10 days ago. He states that he has had pain in that area just recently now the last couple of days. He says he has been coughing a lot and can not stop coughing and thinks the pain could be coming from this but is not sure. There is a possibility he could also developed a postop pneumonia because the Type of surgery was. MD complaint: chest pain Pertinent past history: other ( left-sided lobectomy of lung) Onset (ago): day(s) Timing of current episode: episodic Prior episodes: No Onset: during rest and during exertion Pain location: left chest Pain radiation: none Severity: moderate Pain scale (0-10): 5 Quality: tightness and sharp Relieving factors: nothing Exacerbating factors: exertion and inspiration Context: recent surgery Treatment prior to arrival: none Related Data Home Medications ?Medication ?Instructions ?Recorded ?Confirmed ?Last Taken ?Type aspirin 81 mg chewable tablet 81 mg PO DAILY 09/12/21 06/02/23 06/15/23 History atorvastatin 40 mg tablet 40 mg PO DAILY 09/12/21 06/02/23 06/15/23 History bupropion HCl (smoking deter) 150 150 mg PO BID 09/12/21 06/02/23 06/15/23 History mg tablet,12 hr sustained-release(smoking deterrent) carvedilol 25 mg tablet 25 mg PO BID 09/12/21 06/02/23 06/15/23 History ferrous sulfate 324 mg (65 mg 324 mg PO DAILY 09/12/21 06/02/23 06/15/23 History iron) tablet,delayed release fluticasone fur. 100 mcg-umeclid 1 inh inhalation DAILY 09/12/21 06/02/23 06/15/23 History 62.5 mcg-vilant 25 mcg inhalat.powder (Trelegy Ellipta) lisinopril 10 mg tablet 10 mg PO DAILY 09/12/21 06/02/23 06/15/23 History omeprazole 20 mg capsule,delayed 20 mg PO DAILY 09/12/21 06/02/23 06/15/23 History release tamsulosin 0.4 mg capsule 0.4 mg PO DAILY 09/12/21 06/02/23 06/15/23 History dapagliflozin propanediol 10 mg 10 mg PO DAILY 06/02/23 06/16/23 06/15/23 History tablet (Farxiga) Allergies Allergy/AdvReac Type Severity Reaction Status Date / Time NKDA Allergy Mild Unknown Uncoded 03/07/24 15:29 Review of Systems 2 Review of Systems: All systems reviewed & are unremarkable except as noted in HPI and below Constitutional: Constitutional: Reports as per HPI Eyes: Eyes: Reports no additional eye complaints ENT: Reports system reviewed and no additional complaints, except as documented Cardiovascular: Cardiovascular: Reports no additional cardiovascular complaints Respiratory: Respiratory: Reports chest congestion, Reports pain with cough and Reports dyspnea on exertion Gastrointestinal: Gastrointestinal: Reports no additional gastrointestinal complaints Genitourinary: Genitourinary: Reports no additional male genitourinary complaints Musculoskeletal: Musculoskeletal: Reports as per HPI Integumentary/Breasts: Skin/Breast: Reports system reviewed and no additional complaints, except as docu Neurologic: Reports system reviewed and no additional complaints, except as documented Psychiatric: Psychiatric: Reports no additional psychiatric complaints Endocrine: Endocrine: Reports no additional endocrine complaints Hematologic/Lymphatic: Hematologic/Lymphatic: Reports no additional hematologic/lymphatic complaints Allergic/Immunologic: Allergic/Immunologic: Reports no additional allergic/immunologic complaints PMFSH Past Medical History Medical History Multani esophagus Throat cancer Hyperlipidemia BPH (benign prostatic hyperplasia) GERD (gastroesophageal reflux disease) Hypertension Surgical History Surgical History History of permanent cardiac pacemaker placement Family History Family History Other Family history of alcoholism Family history of cardiovascular disease Hypertension Social History Social History Smoking status: Former smoker Tobacco type: cigarettes Smoking end date: 02/16/14 Alcohol intake: current Alcohol use details: socially Substance use: never Substance use type: does not use Living arrangements: with family Spiritual care concerns: No Exam 2 Const: General: cooperative, healthy appearing and comfortable HENMT: Head: normal to inspection, No palpable skull fracture present and normocephalic Eyes: General: appearance normal, both eyes and all related structures V isual Diallo: normal visual diallo by confrontation Alignment and Position: a lignment normal Neck: Neck: normal visual inspection, full ROM and no lymphadenopathy T hyroid: thyroid normal Carotids: normal carotid upstroke Chest: Chest palpation & inspection: normal inspection of the chest, localized rib tenderness with anteroposterior compression and tenderness rib (left) B reast/axilla inspection: normal inspection of the breasts Resp: Effort & Inspection: normal respiratory effort and able to speak in complete sentences Auscultation: crackles and rhonchi Other: left middle to lower lobe of the lung Cardio: Jugular venous distension: no JVD Palpation: normal PMI Rate: r egular rate Rhythm: regular rhythm GI: Inspection: normal to inspection Percussion: Yes normal to percussion Auscultation: normal bowel sounds Back/Spine/Pelvis: Back: no CVA tenderness Cervical Spine: normal cervical lordosis Thoracic/Lumbar Spine: thoracic and lumbar spine normal to inspection Skin: General skin exam: normal color, no rashes or lesions noted and elasticity normal Neuro: General: oriented to person, oriented to place and oriented to time Extrem: General: normal to inspection, full ROM and capillary refill normal Psych: Appearance: grossly normal and well kempt Mental Status: mental status grossly normal Speech and movement: Normal speech and movement present Course Vital Signs Vital signs: Vital Signs Temperature 98.0 F 03/07/24 15:15 Pulse Rate 88 03/07/24 15:15 Respiratory Rate 20 03/07/24 15:15 Blood Pressure 123/86 03/07/24 15:15 Pulse Oximetry 98 03/07/24 15:15 Oxygen Delivery Room Air 03/07/24 15:15 Temperature 98.0 F 03/07/24 15:15 Pulse Rate 89 03/07/24 17:46 Respiratory Rate 13 03/07/24 17:46 Blood Pressure 100/54 L 03/07/24 17:46 Pulse Oximetry 94 03/07/24 17:46 Oxygen Delivery Room Air 03/07/24 15:15 MDM - Chest Pain MDM Narrative Medical decision making narrative: the surgery that he had was a left lobectomy which was recent in the last 10 days. So he definitely has postoperative pain from this but he has felt very bad cough and he has coughing nonstop process that is very extremely painful to the cough. Will do a CT scan without contrast of the chest, will given Tessalon Perles for cough and do basic lab work. CT scan of the chest showed consolidation and pleural effusion left Middle lobe of the lung. Will treat him with antibiotics case start him on Augmentin and doxycycline. Also start him with steroid and gave him Decadron. Differential Diagnosis Differential diagnosis: Likely costochondritis and other (pneumonia ) Medical Records Data Attestation: I reviewed the patient's medical records. Lab Data Attestation: I reviewed the patient's lab results. 03/07/24 15:52 03/07/24 15:51 Labs: Lab Results 03/07/24 03/07/24 Range/Units 15:51 15:52 WBC 10.1 (4.8-10.8) K/mm3 RBC 4.51 L (4.70-6.10) M/mm3 Hgb 12.7 (12.4-15.3) g/dL Hct 39.4 (37.0-46.0) % MCV 87.4 (78.0-102.0) fL MCH 28.2 (27.0-31.0) pg MCHC 32.2 (32-36) g/dL RDW 12.2 (11.6-14.4) % Plt Count 349 (150-420) K/mm3 MPV 8.7 (8.7-11.0) fl Immature Gran % (Auto) 1.3 H (0.0-0.0) % Neut % (Auto) 69.3 (50.0-70.0) % Lymph % (Auto) 16.1 L (18.0-42.0) % [place] % (Auto) 8.1 (2.0-11.0) % Eos % (Auto) 4.2 (1.0-6.0) % Baso % (Auto) 1.0 (0.0-1.0) % Lymph # (Auto) 1.63 (1.10-4.50) K/mm3 [place] # (Auto) 0.82 (0.10-0.90) K/mm3 Eos # (Auto) 0.42 (0.02-0.50) K/mm3 Baso # (Auto) 0.10 (0.00-0.10) K/mm3 Abs Immat Gran (auto) 0.13 H (0.00-0.00) K/mm3 Absolute Neuts (auto) 7.00 (1.70-7.20) K/mm3 Absolute Nucleated RBC 0.00 (0.00-0.00) K/mm3 Nucleated RBC % 0.0 (0-0.0) % Sodium 136 (136-145) mmol/L Potassium 4.6 (3.5-5.1) mmol/L Chloride 100 (98-108) mmol/L Carbon Dioxide 28 (21-32) mmol/L Anion Gap 8 (4-12) mmol/L BUN 16 (7-18) mg/dL Creatinine 1.08 (0.70-1.30) mg/dL Estim Creat Clear Calc 62 ml/min Estimated GFR > 60 (59 - ) Glucose 113 H (70-99) mg/dL Calculated Osmolality 284 L (285-295) mOsm/kg Calcium 8.6 (8.5-10.1) mg/dL Total Bilirubin 0.3 (0.00-1.00) mg/dL AST 35 (15-37) U/L ALT 76 H (16-63) U/L Alkaline Phosphatase 103 (46-116) U/L Troponin I < 4.0 (0.00-60.4) ng/L NT-Pro-B Natriuret Pep 121 (0-125) pg/mL Total Protein 6.6 (6.4-8.2) g/dL Albumin 2.4 L (3.4-5.0) g/dL ABG Data Attestation: I personally reviewed and interpreted this ABG as follows: Imaging Data Attestation: I personally reviewed and interpreted this imaging study as follows: Discharge Plan Discharge Clinical Impression: Pneumonia, Costalchondritis Patient Disposition: Home, Self-Care Condition: Stable Instructions: Bacterial Pneumonia (ED) Patient Language: Liberian Prescriptions: New amoxicillin-pot clavulanate 875-125 mg tablet 1 tablet PO Q12H Qty: 20 0RF doxycycline hyclate 100 mg tablet 100 mg PO Q12H Qty: 20 0RF methylprednisolone [Medrol (Babar)] 4 mg tablets,dose pack See Rx Instructions .ROUTE .COMPLEX Qty: 21 0RF Rx Instructions: orally per package directions No Action atorvastatin 40 mg tablet 40 mg PO DAILY carvedilol 25 mg tablet 25 mg PO BID tamsulosin 0.4 mg capsule 0.4 mg PO DAILY lisinopril 10 mg tablet 10 mg PO DAILY omeprazole 20 mg capsule,delayed release(DR/EC) 20 mg PO DAILY bupropion HCl (smoking deter) 150 mg tablet extended release 12 hr 150 mg PO BID Trelegy Ellipta 100-62.5-25 mcg blister with device 1 inh INHALATION DAILY aspirin [Baby Aspirin] 81 mg Tablet,Chewable 81 mg PO DAILY ferrous sulfate 324 mg (65 mg iron) Tablet,Delayed Release (Dr/Ec) 324 mg PO DAILY dapagliflozin propanediol [Farxiga] 10 mg tablet 10 mg PO DAILY Follow-up/Referrals: Sarita Hankins MD [Primary Care Provider] - Time of Disposition: 18:28
[2024-03-07] MEDS: dexAMETHasone SOD PHOS INJ 10 MG/ML 1 ML VIAL IM (18:17)
[2024-03-07] MEDS: AMOXICILLIN/CLAVULANATE K 875-125 MG TAB 1 TABLET PO (18:17)
[2024-03-07] MEDS: DOXYCYCLINE HYCLATE 100 MG TABLET PO (18:17)
== END 2024-03-07 18:45 | disposition home or self-care (01) ==
PROVIDERS: Emergency Provider Family Medicine; PCP Internal Medicine
DX: J18.9 Pneumonia, unspecified organism (principal); M94.0 Chondrocostal junction syndrome [Tietze]; I10 Essential (primary) hypertension; Z85.89 Personal history of malignant neoplasm of other organs and systems; Z87.891 Personal history of nicotine dependence; Z90.2 Acquired absence of lung [part of]
CPT/HCPCS: 36415; 71250; 80053; 83880; 84484; 85025; 93005; 96372; 96374; 99284; A9270; J1100; J2270

== ENCOUNTER 2024-04-16 07:35 | Outpatient (CLI) | payer MEDICARE, SELFPAY ==
[2024-04-16 07:53] LABS: Basophils Absolute Auto 0.08 K/mm3 (0.00-0.10); Basophils Percent Auto 1.2 % (0.0-1.0); Eosinophils Absolute Auto 0.41 K/mm3 (0.02-0.50); Hematocrit 43.5 % (37.0-46.0); Hemoglobin 14.3 g/dL (12.4-15.3); Immature Granulocyte Absolute 0.02 K/mm3 (0.00-0.00); Immature Granulocyte Percent A 0.3 % (0.0-0.0); Lymphocytes Absolute Auto 1.57 K/mm3 (1.10-4.50); Lymphocytes Percent Auto 22.9 % (18.0-42.0); Mean Corpuscular HGB Conc 32.9 g/dL (32-36); Mean Corpuscular Hemoglobin 28.8 pg (27.0-31.0); Mean Corpuscular Volume 87.5 fL (78.0-102.0); Mean Platelet Volume 9.7 fl (8.7-11.0); Monocytes Percent Auto 10.2 % (2.0-11.0); Neutrophils Absolute Auto 4.07 K/mm3 (1.70-7.20); Neutrophils Percent Auto 59.4 % (50.0-70.0); Platelet Count Result 225 K/mm3 (150-420); Red Blood Count 4.97 M/mm3 (4.70-6.10); Red Cell Distribution Width 13.5 % (11.6-14.4); White Blood Count 6.9 K/mm3 (4.8-10.8)
[2024-04-16 07:54] LABS: Add Urine Microscopic? NO; Appearance Urine Clear (Clear); Bilirubin Urine Negative (Negative); Blood Urine Negative (Negative); Color Urine Light Yellow (Yellow); Glucose Urine UA 3+ (Negative); Ketones Urine Negative (Negative); Leukocyte Esterase Ur Negative (Negative); Nitrate Urine Negative (Negative); Protein Urine Negative (Negative); Urobilinogen Urine 0.2 mg/dL (0.2-1.0); pH Urine 5.5 (5.0-8.0)
[2024-04-16 08:59] LABS: Alanine Aminotransferase 27 U/L (16-63); Alkaline Phosphatase 91 U/L (46-116); Aspartate Amino Transferase 16 U/L (15-37); Bilirubin,Total 0.6 mg/dL (0.00-1.00); Blood Urea Nitrogen 56 mg/dL (7-18); Calcium 8.3 mg/dL (8.5-10.1); Chloride 103 mmol/L (98-108); Cholesterol 184 mg/dL (0-200); Creatine Kinase 143 U/L (39-308); Free T4 Free Thyroxine 0.86 ng/dL (0.76-1.46); HDL Direct 62 mg/dL (40-60); LDL Cholesterol Calculated 104 mg/dL (<130); Potassium 4.7 mmol/L (3.5-5.1); Sodium 140 mmol/L (136-145); Thyroid Stimulating Hormone 1.84 uIU/mL (0.36-3.74); Total Protein 6.6 g/dL (6.4-8.2); Triglycerides 88 mg/dL (0-150)
[2024-04-16 09:32] LABS: Free T3 3.36 pg/mL (2.18-3.98)
[2024-04-16 09:49] LABS: Albumin Level 3.6 g/dL (3.4-5.0); Anion Gap 10 mmol/L (4-12); Carbon Dioxide 27 mmol/L (21-32); Estimated Glomerular Filt Rate 58; Glucose 125 mg/dL (70-99); Osmolality Calculated 306 mOsm/kg (285-295)
[2024-04-16 10:16] LABS: Hemoglobin A1C 5.7 % (<5.7)
== END 2024-04-16 07:36 | disposition home or self-care (01) ==
LOC: CHSLAB 07:38
PROVIDERS: PCP Internal Medicine; Visit Provider Internal Medicine
DX: R06.00 Dyspnea, unspecified (principal); Z12.5 Encounter for screening for malignant neoplasm of prostate; I10 Essential (primary) hypertension; E78.2 Mixed hyperlipidemia; R73.01 Impaired fasting glucose
CPT/HCPCS: 36415; 80053; 80061; 81003; 82550; 83036; 84153; 84439; 84443; 84481; 85025; G0103

== ENCOUNTER 2024-08-25 00:32 | Day surgery (SDC) | payer MEDICARE, SELFPAY ==
[2024-08-01 14:34] VITALS: BMI 25.6
--- OUTSIDE RECORDS SUMMARY | 2024-08-25 00:35 | XMS_ITS ---
Author Organization [facility] Address [address] [place] [address] Care Team Providers Care Bench Inspector Name Role Phone Sarita Hankins MD Primary Care Provider Massimo Campos MD Unavailable [phone] Miscellaneous, Not In File Unavailable Unava ilable Active Problems Problem Noted Date Diagnosed Date LBBB (left bundle branch block) 04/14/2024 Chronic diastolic congestive heart failure 02/25 Assessment & Plan (02/26/2024 10:41 AM ION EXCHANGE OPERATOR): Mild left ventricular systolic dysfunction. There is global hypokinesis. Ejection Fraction is measured at 50 %. Mild concentric left ventricular hypertrophy. (POA) - chronic/compensated on admission - Cont home meds as tolerated - Low dose BB as BP tolerates - SABA on hold BPH (benign prostatic hyperplasia) 02/26/2024 Assessment & Plan (02/28/2024 10:00 AM ION EXCHANGE OPERATOR): - cont home meds - dc'd chambers 02/27 Painful respiration 02/26/2024 Acute post-thoracotomy pain 02/26/2024 Mass of left lung 02/25/2024 Assessment & Plan (02/28/2024 10:01 AM ION EXCHANGE OPERATOR): S/P LEFT THORACOTOMY, UPPER LOBE WEDGE, PROCEEDED TO LOBECTOMY (Left) - chest tube x 1 to water seal - CXR at 1200 - Dc trish 02/27 - Monitor in OU - home meds as tolerated - PT to see and eval - voice is hoarse at baseline HTN (hypertension) 02/25/2024 Assessment & Plan (02/25/2024 4:34 PM ION EXCHANGE OPERATOR): - meds as BP tolerates - BB restarted at lower dose - hold other home BP meds at this time COPD (chronic obstructive pulmonary disease) 10/2024 Assessment & Plan (02/25/2024 4:37 PM ION EXCHANGE OPERATOR): - wean O2 as tolerated - Cont home inhalers Larynx cancer 02/25/2024 Assessment & Plan (02/25/2024 4:51 PM ION EXCHANGE OPERATOR): - hx larynx cancer - Hoarse at baseline - aspiration precautions Malignant neoplasm of upper lobe of left lung Pulmonary nodules 10/04/2021 Chronic systolic congestive heart failure 2019 Nonischemic cardiomyopathy 03/21/2019 Presence of biventricular au tomatic cardioverter/defibrillator (AICD) 07/20/2017 Overview (10/15/2020): STJ Quadra Assura Bi-V ICD implanted 10/15/20 for NICM/CHF/LBBB. Andres Pearson Chronic Leads are from 08/25/12. Closed fracture of phalanx of thumb 08/22/2013 Current Treatment and Therapy Plans No current plan information found. Past Treatment and Therapy Plans No past plan information found. Lifetime Dose Tracking * Chemical Lifetime Dose Automatic Entry Manual Entr y DLP 1,406 mGycm 1,406 mGycm 0 mGycm
--- OUTSIDE RECORDS SUMMARY | 2024-08-25 00:36 | XMS_ITS | Encounter Summary ---
Author Organization [facility] Address [address] [place] [id number] Care Team Providers Care Program Director Scouting Name Role Phone Sarita Hankins MD Primary Care Provider [phone] Massimo Campos MD Unavailable [phone] Miscellaneous, Not In File Unavailable Unava ilable Encounter Details Date Type Department Care Team (Late st Contact Info) Description 03/26/2016 Orders Only [facility] ProviderAngela MD [address] [place] [id number] Social History Tobacco Use Types Packs/Day Years Used Date Smoking Tobacco: Former Cigarettes Q uit: 02/17/2012 Alcohol Use Standard Drinks/Week Comments Yes 0 (1 standard drink = 0.6 oz pur e alcohol) Sex and Gender Information Value Date Recorded Sex Assigned at Not on file Legal Sex Male 12:34 PM PROJECT LEAD Gender Identity Male 02/03/2022 4:23 PM PROJECT LEAD Sexual Orientation Straight 02/03/2022 4: 23 PM PROJECT LEAD documented as of this encounter Plan of Treatment Not on file documented as of this encounter Procedures Procedure Name Priority Date/Time Associated Diagnosis Comments CARDIOLOGY REPORT 03/26/2016 documented in this encounter Results * CARDIOLOGY REPORT (03/26/2016) Anatomical Region Laterality Modality Other Narrative 03/26/2016 Ordered by an unspecified provider. Historical Provider [facility] CARDIAC SERVICES PROCE DURES Final Result documented in this encounter Visit Diagnoses Not on filedocumented in this encounter Care Teams Program Director Scouting Relationship Specialty Start Date End Date Sarita Hankins MD [address] [place] [address] PCP - General 03/28/15 Massimo Campos MD [address] [place] [address] Referring Physician Cardiology 03/23/19 Miscellaneous, Not In File 10/15/20 documented as of this encounter
--- OUTSIDE RECORDS SUMMARY | 2024-08-25 00:36 | XMS_ITS | Referral Summary ---
Author Organization [facility] Address [address] [place] [address] Care Team Providers Care Relocation Coordinator Name Role Phone Sarita Hankins MD Primary Care Provider + [phone] Massimo Campos MD Unavailable Miscellaneous, Not In File Unavailable Unava ilable Encounters Date Type Department Care Team Description 08/08/2024 2:00 PM CDT Ancillary Procedure Arrhythmia Center [address] [facility] [address] [address] Presence of biventricular automatic cardioverter/defibril lator (AICD) (Primary Dx); NICM (nonischemic cardiomyopathy) (HCC) 07/22/2024 8:59 AM CDT - 07/22/2024 11:59 PM CDT Hospital Encounter [facility] [place] [address] [facility] Floor [address] [place] [address] Pulmonary nodule Discharge Disposition: Discharge to home or self care 07/22/2024 11:15 AM CDT Office Visit [facility] [address] [facility] Floor 5 [place] [address] Tyler Siddiqui MD Pulmonary nodule (Primary Dx) from Last 3 Months Allergies No known active allergies Medications omeprazole (PriLOSEC) 20 mg capsule take 1 capsule (20MG) by oral route every day before a meal 0 3 Active tamsulosin (FLOMAX) 0.4 mg capsule,extende d release 24hr take 1 capsule by oral route every day 1/2 hour following the same meal each day 0 0 5 Active atorvastatin (LIPITOR) 40 mg tablet take 1 tablet by oral route every day 0 0 6 Active carvedilol (COREG) 25 mg tablet take 1 Tablet by ORAL route 2 times every day with food 60 0 4 Active aspirin 81 mg tablet Take 1 tablet (81 mg total) by mouth every evening Active lisinopril (PRINIVIL,ZESTR IL) 10 mg tablet Take 1 tablet (10 mg total) by mouth daily with dinner Active fluticasone-ume clidin-vilanter (TRELEGY ELLIPTA) 100-62.5-25 mcg inhaler Inhale 1 puff every morning Active ferrous sulfate 325 mg (65 mg of elemental iron) tablet Take 1 tablet (325 mg total) by mouth daily with breakfast Active buPROPion SR (ZYBAN) 150 mg 12 hr tablet Take 1 tablet (150 mg total) by mouth 2 (two) times a day 3 Active Farxiga 10 mg tablet Take 1 tablet (10 mg total) by mouth daily 30 tablet 11 4 Active naproxen sodium (Aleve) 220 mg capsule Take 1-2 tablets by mouth 2 (two) times a day as needed (pain) Active acetaminophen 500 mg capsuleIndicati ons:Pain Take 2 capsules (1,000 mg total) by mouth every 8 (eight) hours as needed for pain 5 Active Active Problems Problem Noted Date Diagnosed Date LBBB (left bundle branch block) 04/14/2024 Chronic diastolic congestive heart failure 02/25 Assessment & Plan (02/26/2024 10:41 AM QUILL COLLECTOR): Mild left ventricular systolic dysfunction. There is global hypokinesis. Ejection Fraction is measured at 50 %. Mild concentric left ventricular hypertrophy. (POA) - chronic/compensated on admission - Cont home meds as tolerated - Low dose BB as BP tolerates - SABA on hold BPH (benign prostatic hyperplasia) 02/26/2024 Assessment & Plan (02/28/2024 10:00 AM QUILL COLLECTOR): - cont home meds - dc'd chambers 02/27 Painful respiration 02/26/2024 Acute post-thoracotomy pain 02/26/2024 Mass of left lung 02/25/2024 Assessment & Plan (02/28/2024 10:01 AM QUILL COLLECTOR): S/P LEFT THORACOTOMY, UPPER LOBE WEDGE, PROCEEDED TO LOBECTOMY (Left) - chest tube x 1 to water seal - CXR at 1200 - Dc chambers 02/27 - Monitor in OU - home meds as tolerated - PT to see and eval - voice is hoarse at baseline HTN (hypertension) 02/25/2024 Assessment & Plan (02/25/2024 4:34 PM QUILL COLLECTOR): - meds as BP tolerates - BB restarted at lower dose - hold other home BP meds at this time COPD (chronic obstructive pulmonary disease) 10/2024 Assessment & Plan (02/25/2024 4:37 PM QUILL COLLECTOR): - wean O2 as tolerated - Cont home inhalers Larynx cancer 02/25/2024 Assessment & Plan (02/25/2024 4:51 PM QUILL COLLECTOR): - hx larynx cancer - Hoarse at [...] Closed fracture of phalanx of thumb 08/22/2013 Immunizations Immunization Administration Dates Next Due Influenza, Quadrivalent, Spl it, Preservative Free, Intramuscular 02/25/2016 Influenza, Trivalent, High D ose, Split, Preservative Free, Intramuscular 02/25/2024 Influenza, Trivalent, IM (MDV) 10/06/2014,2012 Pfizer SARS-CoV-2 Monovalent Vaccination (12+ Yrs) PURPLE 05/07/2020 Pneumococcal Conjugate PCV 13 10/06/2014 Pneumococcal Polysaccharide PPV23 10/11/2015 Tdap 02/25/2016 ZOSTER Recombinant 02/03/2018,09/23/2017 Social History Tobacco Use Types Packs/Day Years Used Date Smoking Tobacco: Former Cigarettes 1.5 44 1 969 - 2013 Passive Smoke Exposure: Past Smokeless Tobacco: Former Chew Quit: 09/16/1980 Tobacco Cessation:Counseling Given: Not Answered Alcohol Use Standard Drinks/Week Comments Yes 0 (1 standard drink = 0.6 oz pur e alcohol) very rare AUDIT-C Answer Date Recorded Q1: How often do you have a drink containing alc ohol? Monthly or less 02/25/2024 Q2: How many drinks containi ng alcohol do you have on a typical day when you are drinking? 5 or 6 02/25/2024 Q3: How often do you have si x or more drinks on one occasion? Less than monthly 02/25/2024 Personal Safety Answer Date Recorded Have you ever been in or are you currently in a harmful physical or emotional relationship or is someone making you feel afraid or unsafe? Denies 02/25/2024 Sex and Gender Information Value Date Recorded Sex Assigned at Not on file Legal Sex Male 12:34 PM QUILL COLLECTOR Gender Identity Male 02/03/2022 4:23 PM QUILL COLLECTOR Sexual Orientation Straight 02/03/2022 4: 23 PM QUILL COLLECTOR Last Filed Vital Signs Vital Sign Reading Time Taken Comments Blood Pressure 120/76 07/22/2024 9:31 AM CDT Pulse 61 07/22/2024 9:31 AM CDT Temperature 36.1 C (97 F) 07/22/2024 9:31 AM CDT Respiratory Rate 16 07/22/2024 9:31 AM CDT Oxygen Saturation 96% 07/22/2024 9:31 AM CDT Inhaled Oxygen Concentration - - Weight 79.6 kg (175 lb 6.4 oz) 07/22/2024 9:31 A M CDT Height 175.3 cm (5' 9) 07/22/2024 9:31 AM CDT Body Mass Index 25.9 07/22/2024 9:31 AM CDT Plan of Treatment Not on file Medical Devices Implanted Type Area Window Shade Ring Sewer Device Identifier Shelf Expiration Date Model / Serial / Lot [employer] [id number] Quadra Assura Mp [id number] Df-4 Is4 Is-1 Connector [id number] - [id number] - [id number] Implanted:Qty: 1 on 10/15/2020 by Massimo Campos MD at [facility] ICD [employer] [id number] 07/16/2022 [id number] / [id number] / Procedures Procedure Name Priority Date/Time Associated Diagnosis Comments DEVICE CHECK - REMOTE Routine 08/08/2024 8:40 AM CDT NICM (nonischemic cardiomyopathy) (HCC) CT CHEST W CONTRAST Schedule Routine, Read Routine (OP Routine) 07/22/2024 9:25 AM CDT Pulmonary nodule from Last 3 Months Results * DEVICE CHECK - REMOTE (08/08/2024 8:40 AM CDT) Anatomical Region Laterality Modality Other Narrative 08/10/2024 4:30 PM CDT Table formatting from the original result was not included. BiV ICD CHECK (REMOTE) Patient ID: Jhon Saldana is a 69 y.o. male. This patient received a Perez BiV ICD. They had a routine remote transmission on 08/08/2024 Device implant indications: Nonischemic dilated cardiomyopathy Interrogation of the patient's device demonstrates the following: Presenting EGM: A paced Bi V paced @ 60 bpm Original Device Settings Right Atrium Right Ventricle Left Ventricle Sensitivity (mV) 0.7 mV Auto mV N/A mV Pacing Outputs 3.125 V @ 0.5 ms 2.125 V @ 0.5 ms 3.0 V @ 0.5 ms Testing Measurements Right Atrium Right Ventricle Left Ventricle Sensitivity (mV) 2.4 mV Greater than 12 mV Not done mV Impedence (Ohms) 440 ohms 660 ohms 640 ohms Pace Threshold 1.625 V @ 0.5 ms 1.125 V @ 0.5 ms 2.0 V @ 0.5 ms Pacing % 30 % 99 % 99 % HV Lead Impedance N/A 55 ohms N/A Battery Status: 2.5 years to ANDERS, charge time 8.3 seconds. Episodes last 90 days/Comments: AF [place] less than 1 %, there were 5 mode switch episodes with the longest lasting 40 seconds, available EGMs show far field T-wave sensing on the atrial channel. There is also noise on the atrial channel causing noise reversion. There were no treated ventricular arrhythmias noted on today's remote interrogation. NORMAL DEVICE FUNCTION PROGRAMMED MEDICATIONS: Anti-coagulant(s): Aspirin 81 mg daily Anti-arrhythmic(s): Coreg 25 mg twice daily PLAN: 1) [facility] BiV ICD evaluation 2) Perez remote transmission scheduled in 3 months. 3) Programming appropriate for device settings Amadou Campo RN Alvin Monroy III, MD [facility] PROCEDURES Final Result * CT Chest W Contrast (07/22/2024 9:25 AM CDT) Anatomical Region Laterality Modality Body N/A Computed Tomogra phy 07/22/2024 10:3 8 AM CDT Impressions 07/22/2024 10:38 AM CDT Interval left upper lobectomy. Unchanged right pulmonary nodules. Electronically signed by: Elizabeth Goyal M.D. 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 COMPARISON: 02/05/2024 FINDINGS: No enlarged supraclavicular, axillary or mediastinal lymphadenopathy. The heart size is normal. There is a 3-lead cardiac pacemaker defibrillator in place. The heart size is normal. There is no pericardial effusion. Interval postoperative changes of left upper lobectomy. Emphysema. Elongated 1.4 cm right upper lobe nodule/nodular scarring is unchanged (series 3 image 36). 7 mm partially calcified right upper lobe nodule also stable (series 3 image 40). 2 mm right lower lobe nodule unchanged (series 3 image 34). No pleural effusion or pneumothorax. No new or enlarging pulmonary nodule. Periportal space widening suggestive of hepatic fibrosis. Hypoattenuating focus too small to characterize in the left lateral section, unchanged. Small hiatal hernia. Duodenal diverticulum. Postsurgical changes in the right glenoid. Chronic appearing rib fractures on the left may be related to thoracotomy change. No suspicious osseous lesion. Fat-containing lesion in the sternum, unchanged, benign. 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 COMPARISON: 02/05/2024 FINDINGS: No enlarged supraclavicular, axillary or mediastinal lymphadenopathy. The heart size is normal. There is a 3-lead cardiac pacemaker defibrillator in place. The heart size is normal. There is no pericardial effusion. Interval postoperative changes of left upper lobectomy. Emphysema. Elongated 1.4 cm right upper lobe nodule/nodular scarring is unchanged (series 3 image 36). 7 mm partially calcified right upper lobe nodule also stable (series 3 image 40). 2 mm right lower lobe nodule unchanged (series 3 image 34). No pleural effusion or pneumothorax. No new or enlarging pulmonary nodule. Periportal space widening suggestive of hepatic fibrosis. Hypoattenuating focus too small to characterize in the left lateral section, unchanged. Small hiatal hernia. Duodenal diverticulum. Postsurgical changes in the right glenoid. Chronic appearing rib fractures on the left may be related to thoracotomy change. No suspicious osseous lesion. Fat-containing lesion in the sternum, unchanged, benign. IMPRESSION: Interval left upper lobectomy. Unchanged right pulmonary nodules. Electronically signed by: Elizabeth Goyal M.D. Tyler Siddiqui MD IMG CT PROCEDURES Final R esult from Last 3 Months Insurance MEDICARE AFLAC MEDICARE AETNA SENIOR SUPPLEMENT MEDICARE AFL Advance Directives For more information, please contact: [phone] * Full Code (Latest Code Status on File) Date Activated Date Inactivated Comments 02/25/2024 2:30 PM 02/29/2024 6:49 PM Care Teams Relocation Coordinator Relationship Specialty Start Date End Date Sarita Hankins MD [address] [place] [address] PCP - General 03/28/15 Massimo Campos MD [address] [place] [address] Referring Physician Cardiology 03/23/19 Miscellaneous, Not In File 10/15/20
--- OUTSIDE RECORDS SUMMARY | 2024-08-25 00:36 | XMS_ITS | Clinical Summary ---
Author Organization [facility] Building C Address [address] [facility] [place] [address] Care Team Providers Care Radiology Manager Name Role Phone Sairta Hankins MD Primary Care Provider [phone] Massimo Campos MD Unavailable [phone] Miscellaneous, Not In File Unavailable Unava ilable Allergies No known active allergies Medications omeprazole [...] 02/25 Assessment & Plan (02/26/2024 10:41 AM ORACLE DATABASE CONSULTANT): Mild left ventricular systolic dysfunction. There is global hypokinesis. Ejection Fraction is measured at 50 %. Mild concentric left ventricular hypertrophy. (POA) - chronic/compensated on admission - Cont home meds as tolerated - Low dose BB as BP tolerates - SABA on hold BPH (benign prostatic hyperplasia) 02/26/2024 Assessment & Plan (02/28/2024 10:00 AM ORACLE DATABASE CONSULTANT): - cont home meds - dc'd chambers 02/27 Painful respiration 02/26/2024 Acute post-thoracotomy pain 02/26/2024 Mass of left lung 02/25/2024 Assessment & Plan (02/28/2024 10:01 AM ORACLE DATABASE CONSULTANT): S/P LEFT THORACOTOMY, UPPER LOBE WEDGE, PROCEEDED TO LOBECTOMY (Left) - chest tube x 1 to water seal - CXR at 1200 - Dc chambers 02/27 - Monitor in OU - home meds as tolerated - PT to see and eval - voice is hoarse at baseline HTN (hypertension) 02/25/2024 Assessment & Plan (02/25/2024 4:34 PM ORACLE DATABASE CONSULTANT): - meds as BP tolerates - BB restarted at lower dose - hold other home BP meds at this time COPD (chronic obstructive pulmonary disease) 10/2024 Assessment & Plan (02/25/2024 4:37 PM ORACLE DATABASE CONSULTANT): - wean O2 as tolerated - Cont home inhalers Larynx cancer 02/25/2024 Assessment & Plan (02/25/2024 4:51 PM ORACLE DATABASE CONSULTANT): - hx larynx cancer - Hoarse at baseline - aspiration precautions Malignant neoplasm of upper lobe of left lung Pulmonary nodules 10/04/2021 Chronic systolic congestive heart failure 2019 Nonischemic cardiomyopathy 03/21/2019 Presence of biventricular au tomatic cardioverter/defibrillator (AICD) 07/20/2017 Overview (10/15/2020): STJ Quadra Assura Bi-V ICD implanted 10/15/20 for NICM/CHF/LBBB. [place] - [place] Chronic Leads are from 08/25/12. Closed fracture of phalanx of thumb 08/22/2013 Encounters Date Type Department Care Team Description 08/08/2024 2:00 PM CDT Ancillary Procedure Arrhythmia Center [address] [facility] [address] [address] Presence of biventricular automatic cardioverter/defibril lator (AICD) (Primary Dx); NICM (nonischemic cardiomyopathy) (HCC) 07/22/2024 11:15 AM CDT Office Visit [facility] [facility] Floor 5 [place] [id number] Tyler Siddiqui MD Pulmonary nodule (Primary Dx) 07/22/2024 8:59 AM CDT - 07/22/2024 11:59 PM CDT Hospital Encounter [facility] [place] [address] [facility] [address] [place] [address] Pulmonary nodule Discharge Disposition: Discharge to home or self care from Last 3 Months Immunizations Immunization Administration Dates Next Due Influenza, Quadrivalent, Spl it, Preservative Free, Intramuscular 02/25/2016 Influenza, Trivalent, High D ose, Split, Preservative Free, Intramuscular 02/25/2024 Influenza, Trivalent, IM (MDV) 10/06/2014,2012 Pfizer SARS-CoV-2 Monovalent Vaccination (12+ Yrs) PURPLE 05/07/2020 Pneumococcal Conjugate PCV 13 10/06/2014 Pneumococcal Polysaccharide PPV23 10/11/2015 Tdap 02/25/2016 ZOSTER Recombinant 02/03/2018,09/23/2017 Medical History Medical History Date Comments Peptic ulcer Peptic ulcer dis ease Hx Other Medical Headache, migra ine Hyperlipidemia Hyperlipidemia Malignant neoplasm of larynx (HCC) Cancer, throat Hx Other Medical Cardiomyopathy Hx Other Medical 1999 Throat Cancer w / RT Presence of biventricular au tomatic cardioverter/defibrillator (AICD) 07/20/2017 STJ Quadra Bi-V ICD implanted 08/25/2012 for NICM/CHF/SJDU-[id number] EP ICD BATTERY ON ADVISORY FOR POTENTIAL PREMATURE BATTERY DEPLETIO Family History Medical History Relation Name Comments Sudden Brother 2 Sudden ; Cancer Father Cancer; Diabetes Father Diabetes mellit us; Heart attack Father Myocardial Infa rction; Cause of : Myocardial Infarction/Myocardial Infarction; Cause of : Myocardial Infarction Hypertension Father Hypertension; Stroke Father Stroke; Heart attack Maternal Grandfather Myocard ial Infarction; Sudden Maternal Grandfather Sudden ; Cause of : Sudden Cancer Mother Cancer; Diabetes Mother Diabetes mellit us; Hypertension Mother Hypertension; Diabetes Other Family history of Diabetes mellitus; Sudden Sister 2 Sudden ; C ause of : Sudden Anesthesia problems Neg Hx Relation Name Status Comments Brother 1 Alive Brother 2 Father (Age 73) Maternal Grandfather (Age 70) Mother Other Sister 1 (Age 42) Sister 2 Social History Tobacco Use Types Packs/Day Years Used Date Smoking Tobacco: Former Cigarettes 1.5 44 1 969 - 2012 Passive Smoke Exposure: Past Smokeless Tobacco: Former [...] on file Legal Sex Male 12:34 PM ORACLE DATABASE CONSULTANT Gender Identity Male 02/03/2022 4:23 PM ORACLE DATABASE CONSULTANT Sexual Orientation Straight 02/03/2022 4: 23 PM ORACLE DATABASE CONSULTANT Obstetrics History Last Filed Vital Signs Vital Sign Reading [...] 07/22/2024 9:31 AM CDT Plan of Treatment Health Maintenance Due Date Last Done Comments Colon Cancer Screening-Colonoscopy 1957 Depression Screening 1957 Hepatitis C Screening 1957 Prostate Cancer Screening-PSA 1957 Hepatitis B Screening 1975 Pneumococcal vaccine 65+ (3 of 3 - PCV20 or PCV21) 10/10/2020 10/11/2015, 10/06/2014 Abdominal Aortic Aneurysm (A AA) Screen 2022 Well Visit 65+ 2022 Covid-19 Vaccine (2 - 2023-2 5 season) 2023 05/07/2020 Influenza Vaccine (#1) 2024 , 02/25/2016, 10/06/2014, Additional history exists Fall Risk Assessment 02/28/2025 02/29/2024 DTaP/Tdap/Td Vaccine (2 - Td or Tdap) 02/24/2026 02/25/2016 Zoster Vaccine Completed 02/03/2018, 09/23/2017 Medical Devices Implanted Type Area Customs Verifier Device Identifier Shelf Expiration Date Model / Serial / Lot [employer] [id number] Quadra Assura Mp [id number] Df-4 Is4 Is-1 Connector [id number] - [id number] - [id number] Implanted:Qty: 1 on 10/15/2020 by Massimo Campos MD at [facility] ICD [employer] [id number] 07/16/2022 [id number] / [id number] / Procedures Procedure Name Priority Date/Time Associated [...] 8.3 seconds. Episodes last 90 days/Comments: AF [place] less than 1 %, there were 5 [...] Coreg 25 mg twice daily PLAN: 1) Perez BiV ICD evaluation 2) Perez remote transmission [...] Insurance MEDICARE AFLAC MEDICARE AETNA SENIOR SUPPLEMENT [place] [id number] MEDICARE AFL Advance Directives For more information, please contact: [phone] * Full Code (Latest Code Status on File) Date Activated Date Inactivated Comments 02/25/2024 2:30 PM 02/29/2024 6:49 PM Care Teams Radiology Manager Relationship Specialty Start Date End Date Sairta Hankins MD [address] [place] [address] PCP - General 03/28/15 Massimo Campos MD [address] [place] [address] Referring Physician Cardiology 03/23/19 Miscellaneous, Not In File 10/15/20
[2024-08-25 06:34] VITALS: BP 119/74; PULSE 79; RESP 18; TEMP 36.1; O2SAT 97; BMI 24.6
[2024-08-25] MEDS: LACTATED RINGERS 1,000 ML 150 ML IV CONT (06:42)
--- NOTE | 2024-08-25 07:13 | P.PNAN_ITS ---
Anes - Initial Pre Proc Eval Procedure: Operation Date: 08/25/24 08:00 Proposed Procedures p Colonoscopy - Brayan Alberts MD Date/Time: 08/25/24 07:13 Surgeon: Brayan Alberts MD Pre Op Diagnosis: Personal history of colon polyps, unspecified Patient Data Age: 69 Gender: M Height: 1.78 m Weight: 78 kg Last Vital Signs Temp 97 F L 08/25/24 06:34 Pulse 79 08/25/24 06:34 Resp 18 08/25/24 06:34 BP 119/74 08/25/24 06:34 Pulse Ox 97 08/25/24 06:34 O2 Del Method Room Air 08/25/24 06:34 Allergies Allergy/AdvReac Type Severity Reaction Status Date / Time NKDA Allergy Mild Unknown Uncoded 08/25/24 06:32 Home Medications ?Medication ?Instructions ?Recorded ?Confirmed ?Type aspirin 81 mg chewable tablet 81 mg PO DAILY 09/12/21 08/25/24 History atorvastatin 40 mg tablet 40 mg PO DAILY 09/12/21 08/25/24 History bupropion HCl (smoking deter) 150 150 mg PO BID 09/12/21 08/25/24 History mg tablet,12 hr sustained-release(smoking deterrent) carvedilol 25 mg tablet 25 mg PO BID 09/12/21 08/25/24 History ferrous sulfate 324 mg (65 mg 324 mg PO DAILY 09/12/21 08/25/24 History iron) tablet,delayed release fluticasone fur. 100 mcg-umeclid 1 inh inhalation DAILY 09/12/21 08/25/24 History 62.5 mcg-vilant 25 mcg inhalat.powder (Trelegy Ellipta) lisinopril 10 mg tablet 10 mg PO DAILY 09/12/21 08/25/24 History omeprazole 20 mg capsule,delayed 20 mg PO DAILY 09/12/21 08/25/24 History release tamsulosin 0.4 mg capsule 0.4 mg PO DAILY 09/12/21 08/25/24 History dapagliflozin propanediol 10 mg 10 mg PO DAILY 06/02/23 08/25/24 History tablet (Farxiga) Patient hx anesthesia problems: none Family hx anesthesia problems: none Results Review: All pre-operative results and documents have been reviewed as part of the pre- operative evaluation. [facility] Past Medical History Medical History Multani esophagus Throat cancer Hyperlipidemia BPH (benign prostatic hyperplasia) GERD (gastroesophageal reflux disease) Hypertension Surgical History Surgical History History of permanent cardiac pacemaker placement Family History Family History Other Family history of alcoholism Family history of cardiovascular disease Hypertension Social History Social History Smoking packs per day: 1.5 Smoking cigarettes per day: 30.0 Years smoked: 43 Smoking pack-years: 64.50 Smoking status: Former smoker Tobacco type: cigarettes Smoking end date: 02/16/14 Alcohol intake: current Drinks per week: 1 Alcohol use details: socially Substance use: never Substance use type: does not use Living arrangements: with family Spiritual care concerns: No Anes - Eval Final PreProcedure Day of Procedure 08/25/24 07:13 Patient weight: overweight Lungs: normal air movement Airway: Mallampati scale class II and special considerations (Edentulous. ) Neurological: alert and oriented Last oral intake: >/= 8 hours ASA classification: III Emergent: no Anesthetic plan: proceed Anesthesia type and monitoring: general GIVS and standard monitoring Results Review: All pre-operative results and documents have been reviewed as part of the pre- operative evaluation. HTN, hyperlipidemia, Ex smoker quit 2011, 40 pack years, hx pacemaker/defib. Pt had lung ca, s/p lobectomy 02/2024 surgery only. Doing well post op. Hx of barretts esophagus. Informed Consent: The patient's anesthetic plan and its attendant risks and benefits were discussed with the patient/family/POA. Questions were solicited and answers provided to the satisfaction of the patient/family/POA.
--- NOTE | 2024-08-25 07:57 | PM.IMHP ---
H&P: HPI History of Present Illness Date/Time: 08/25/24 07:57 Chief Complaint: History of colon polyps Narrative: The patient has a history of colonic polyps, the last colonoscopy was approximately 4 yea Review of Systems Review of Systems: All systems reviewed & are unremarkable except as noted in HPI and below PMFSH Past Medical History Medical History Multani esophagus Throat cancer Hyperlipidemia BPH (benign prostatic hyperplasia) GERD (gastroesophageal reflux disease) Hypertension Surgical History Surgical History History of permanent cardiac pacemaker placement Family History Family History Other Family history of alcoholism Family history of cardiovascular disease Hypertension Social History Social History Smoking packs per day: 1.5 Smoking cigarettes per day: 30.0 Years smoked: 43 Smoking pack-years: 64.50 Smoking status: Former smoker Tobacco type: cigarettes Smoking end date: 02/16/14 Alcohol intake: current Drinks per week: 1 Alcohol use details: socially Substance use: never Substance use type: does not use Living arrangements: with family Spiritual care concerns: No Meds Home Medications and Allergies Home Medications ?Medication ?Instructions ?Recorded ?Confirmed ?Type aspirin 81 mg chewable tablet 81 mg PO DAILY 09/12/21 08/25/24 History atorvastatin 40 mg tablet 40 mg PO DAILY 09/12/21 08/25/24 History bupropion HCl (smoking deter) 150 150 mg PO BID 09/12/21 08/25/24 History mg tablet,12 hr sustained-release(smoking deterrent) carvedilol 25 mg tablet 25 mg PO BID 09/12/21 08/25/24 History ferrous sulfate 324 mg (65 mg 324 mg PO DAILY 09/12/21 08/25/24 History iron) tablet,delayed release fluticasone fur. 100 mcg-umeclid 1 inh inhalation DAILY 09/12/21 08/25/24 History 62.5 mcg-vilant 25 mcg inhalat.powder (Trelegy Ellipta) lisinopril 10 mg tablet 10 mg PO DAILY 09/12/21 08/25/24 History omeprazole 20 mg capsule,delayed 20 mg PO DAILY 09/12/21 08/25/24 History release tamsulosin 0.4 mg capsule 0.4 mg PO DAILY 09/12/21 08/25/24 History dapagliflozin propanediol 10 mg 10 mg PO DAILY 06/02/23 08/25/24 History tablet (Farxiga) Allergies Allergy/AdvReac Type Severity Reaction Status Date / Time NKDA Allergy Mild Unknown Uncoded 08/25/24 06:32 Vital Signs Vital Signs - 24 hr 08/25/24 06:34 Temperature 97 F L Pulse Rate 79 Respiratory Rate 18 Blood Pressure 119/74 Pulse Oximetry 97 Oxygen Delivery Room Air Exam Const: General: cooperative and healthy appearing Resp: Effort & Inspection: normal respiratory effort and able to speak in complete sentences Auscultation: clear to auscultation bilaterally Cardio: Rate: regular rate Rhythm: regular rhythm GI: Inspection: normal to inspection GI Palp: No No hepatosplenomegaly present Auscultation: normal bowel sounds Rectal Exam: deferred Skin: General skin exam: normal color Psych: Appearance: grossly normal Mental Status: mental status grossly normal Assessment and Plan Assessment and plan (1) History of colonic polyps: Code(s): Z86.0100 - Personal history of colon polyps, unspecified Status: Acute Assessment and Plan: The patient is deemed a good candidate for the procedure. Consent signed. Will proceed.
[2024-08-25 08:19] VITALS: BP 90/61; PULSE 61; RESP 15; O2SAT 97
[2024-08-25 08:29] VITALS: BP 102/60; PULSE 59; RESP 18; O2SAT 97
[2024-08-25 08:39] VITALS: BP 103/73; PULSE 69; RESP 19; O2SAT 97
== END 2024-08-25 08:48 | disposition home or self-care (01) ==
PROVIDERS: PCP Internal Medicine; Referring Provider Internal Medicine; Visit Provider Internal Medicine Gastroenterology
PROC: 0DJD8ZZ Inspection of Lower Intestinal Tract, Via Natural or Artificial Opening Endoscopic (ICD-10-PCS; CPT 45378; principal; 2024-08-25 08:00)
DX: Z12.11 Encounter for screening for malignant neoplasm of colon (principal); E78.5 Hyperlipidemia, unspecified; N40.0 Benign prostatic hyperplasia without lower urinary tract symptoms; K21.9 Gastro-esophageal reflux disease without esophagitis; I10 Essential (primary) hypertension; Z79.82 Long term (current) use of aspirin; Z79.51 Long term (current) use of inhaled steroids; Z79.84 Long term (current) use of oral hypoglycemic drugs; Z95.0 Presence of cardiac pacemaker; Z87.891 Personal history of nicotine dependence; Z86.0100 Personal history of colon polyps, unspecified; Z87.11 Personal history of peptic ulcer disease; Z85.818 Personal history of malignant neoplasm of other sites of lip, oral cavity, and pharynx; Z82.49 Family history of ischemic heart disease and other diseases of the circulatory system
CPT/HCPCS: G0105; J2003; J2704; J7120

== ENCOUNTER 2024-10-22 07:30 | Outpatient (CLI) | payer MEDICARE, SELFPAY ==
--- OUTSIDE RECORDS SUMMARY | 2024-10-22 07:37 | XMS_ITS | Encounter Summary ---
Author Organization [facility] Address [address] [facility] [address] [place] [address] Care Team Providers Care Event Specialist Name Role Phone Sarita Hankins MD Primary Care Provider [phone] Massimo Campos MD Unavailable [phone] Miscellaneous, Not In File Unavailable Unava ilable Encounter Details Date Type Department Care Team (Late st Contact Info) Description 03/26/2016 Orders Only Arrhythmia Center ProviderAngela MD [address] [place] [address] Social History Tobacco Use Types Packs/Day Years Used Date Smoking Tobacco: Former Cigarettes Q uit: 02/17/2012 Alcohol Use Standard Drinks/Week Comments Yes 0 (1 standard drink = 0.6 oz pur e alcohol) Sex and Gender Information Value Date Recorded Sex Assigned at Not on file Legal Sex Male 12:34 PM CLOTH BOIL OFF MACHINE OPERATOR Gender Identity Male 02/03/2022 4:23 PM CLOTH BOIL OFF MACHINE OPERATOR Sexual Orientation Straight 02/03/2022 4: 23 PM CLOTH BOIL OFF MACHINE OPERATOR documented as of this encounter Plan of [...] on filedocumented in this encounter Care Teams Event Specialist Relationship Specialty Start Date End Date Sarita Hankins MD [address] [place] [address] PCP - General 03/28/15 Massimo Campos MD [address] [place] [address] Referring Physician Cardiology 03/23/19 Miscellaneous, Not In File 10/15/20 documented as of this encounter
--- OUTSIDE RECORDS SUMMARY | 2024-10-22 07:37 | XMS_ITS ---
Author Organization [facility] Address [address] [place] [address] Care Team Providers Care Fpga Design Engineer Name Role Phone Sarita Hankins MD Primary Care Provider [phone] Massimo Campos MD Unavailable [phone] Miscellaneous, Not In File Unavailable Unava ilable Active Problems Problem Noted Date Diagnosed Date LBBB (left bundle branch block) 04/14/2024 Chronic diastolic congestive heart failure 02/25 Assessment & Plan (02/26/2024 10:41 AM DAYCARE TEACHER): Mild left ventricular systolic dysfunction. There is global hypokinesis. Ejection Fraction is measured at 50 %. Mild concentric left ventricular hypertrophy. (POA) - chronic/compensated on admission - Cont home meds as tolerated - Low dose BB as BP tolerates - SABA on hold BPH (benign prostatic hyperplasia) 02/26/2024 Assessment & Plan (02/28/2024 10:00 AM DAYCARE TEACHER): - cont home meds - dc'd chambers 02/27 Painful respiration 02/26/2024 Acute post-thoracotomy pain 02/26/2024 Mass of left lung 02/25/2024 Assessment & Plan (02/28/2024 10:01 AM DAYCARE TEACHER): S/P LEFT THORACOTOMY, UPPER LOBE WEDGE, PROCEEDED TO LOBECTOMY (Left) - chest tube x 1 to water seal - CXR at 1200 - Dc trish 02/27 - Monitor in OU - home meds as tolerated - PT to see and eval - voice is hoarse at baseline HTN (hypertension) 02/25/2024 Assessment & Plan (02/25/2024 4:34 PM DAYCARE TEACHER): - meds as BP tolerates - BB restarted at lower dose - hold other home BP meds at this time COPD (chronic obstructive pulmonary disease) 10/2024 Assessment & Plan (02/25/2024 4:37 PM DAYCARE TEACHER): - wean O2 as tolerated - Cont home inhalers Larynx cancer 02/25/2024 Assessment & Plan (02/25/2024 4:51 PM DAYCARE TEACHER): - hx larynx cancer - Hoarse at [...]
--- OUTSIDE RECORDS SUMMARY | 2024-10-22 07:37 | XMS_ITS | Clinical Summary ---
Author Organization [facility] Address [address] [place] [address] Care Team Providers Care Voyage Management System Operator Name Role Phone Sarita Hankins MD Primary Care Provider [phone] Massimo Campos MD Unavailable [phone] Miscellaneous, Not In File Unavailable Unava ilable [...] 2 (two) times a day 3 Active naproxen sodium (Aleve) 220 mg capsule Take 1-2 tablets by mouth 2 (two) times a day as needed (pain) Active acetaminophen 500 mg capsuleIndicati ons:Pain Take 2 capsules (1,000 mg total) by mouth every 8 (eight) hours as needed for pain 5 Active Farxiga 10 mg tablet TAKE 1 TABLET BY MOUTH EVERY DAY 30 tablet 11 5 Active Active Problems Problem Noted Date Diagnosed Date LBBB (left bundle branch block) 04/14/2024 Chronic diastolic congestive heart failure 02/25 Assessment & Plan (02/26/2024 10:41 AM HIM ASSISTANT): Mild left ventricular systolic dysfunction. There is global hypokinesis. Ejection Fraction is measured at 50 %. Mild concentric left ventricular hypertrophy. (POA) - chronic/compensated on admission - Cont home meds as tolerated - Low dose BB as BP tolerates - SABA on hold BPH (benign prostatic hyperplasia) 02/26/2024 Assessment & Plan (02/28/2024 10:00 AM HIM ASSISTANT): - cont home meds - dc'd chambers 02/27 Painful respiration 02/26/2024 Acute post-thoracotomy pain 02/26/2024 Mass of left lung 02/25/2024 Assessment & Plan (02/28/2024 10:01 AM HIM ASSISTANT): S/P LEFT THORACOTOMY, UPPER LOBE WEDGE, PROCEEDED TO LOBECTOMY (Left) - chest tube x 1 to water seal - CXR at 1200 - Dc chambers 02/27 - Monitor in OU - home meds as tolerated - PT to see and eval - voice is hoarse at baseline HTN (hypertension) 02/25/2024 Assessment & Plan (02/25/2024 4:34 PM HIM ASSISTANT): - meds as BP tolerates - BB restarted at lower dose - hold other home BP meds at this time COPD (chronic obstructive pulmonary disease) 10/2024 Assessment & Plan (02/25/2024 4:37 PM HIM ASSISTANT): - wean O2 as tolerated - Cont home inhalers Larynx cancer 02/25/2024 Assessment & Plan (02/25/2024 4:51 PM HIM ASSISTANT): - hx larynx cancer - Hoarse at baseline - aspiration precautions Malignant neoplasm of upper lobe of left lung Pulmonary nodules 10/04/2021 Chronic systolic congestive heart failure 2019 Nonischemic cardiomyopathy 03/21/2019 Presence of biventricular au tomatic cardioverter/defibrillator (AICD) 07/20/2017 Overview (10/15/2020): STJ Quadra Assura Bi-V ICD implanted 10/15/20 for NICM/CHF/LBBB. Andres - Michel Chronic Leads are from 08/25/12. Closed fracture of phalanx of thumb 08/22/2013 Encounters Date Type Department Care Team Description 08/08/2024 2:00 PM CDT Ancillary Procedure Arrhythmia Center [address] [facility] [address], [place] [id number] Presence of biventricular automatic cardioverter/defibril lator (AICD) (Primary Dx); NICM (nonischemic cardiomyopathy) (HCC) 07/22/2024 11:15 AM CDT Office Visit [facility] Medicine Surgery [facility] [facility] Floor [address] [place] [address] Tyler Siddiqui MD Pulmonary nodule (Primary Dx) 07/22/2024 8:59 AM CDT - 07/22/2024 11:59 PM CDT Hospital Encounter [facility] [place] [address] [facility] [address] [place] [address] Pulmonary nodule Discharge Disposition: Discharge to home [...] ine Hyperlipidemia Hyperlipidemia Malignant neoplasm of larynx Can cer, throat Hx Other Medical Cardiomyopathy Hx Other Medical 1999 Throat Cancer w / RT Presence of biventricular au tomatic cardioverter/defibrillator (AICD) 07/20/2017 STJ Quadra Bi-V ICD implanted 08/25/2012 for NICM/CHF/TSQZ-Insryb-Qddqeuyde EP ICD BATTERY ON ADVISORY FOR POTENTIAL [...] on file Legal Sex Male 12:34 PM HIM ASSISTANT Gender Identity Male 02/03/2022 4:23 PM HIM ASSISTANT Sexual Orientation Straight 02/03/2022 4: 23 PM HIM ASSISTANT Obstetrics History Last Filed Vital Signs Vital [...] 02/03/2018, 09/23/2017 Medical Devices Implanted Type Area Qa Automation Architect Device Identifier Shelf Expiration Date Model / Serial / Lot [employer] [id number] Quadra Assura Mp [id number] Df-4 Is4 Is-1 Connector [id number] [id number] - [id number] - [id number] Implanted:Qty: 1 on 10/15/2020 by Massimo Campos MD at [facility] ICD [employer] [id number] 07/16/2022 [id number] / [id number] / Procedures Procedure Name Priority Date/Time Associated [...] 8.3 seconds. Episodes last 90 days/Comments: AF [place] less than 1 %, there were 5 [...] Advance Directives For more information, please contact: [phone] * Full Code (Latest Code Status on File) Date Activated Date Inactivated Comments 02/25/2024 2:30 PM 02/29/2024 6:49 PM Care Teams Voyage Management System Operator Relationship Specialty Start Date End Date Sarita Hankins MD [address] [place] [address] PCP - General 03/28/15 Massimo Campos MD [address] [place] [address] Referring Physician Cardiology 03/23/19 Miscellaneous, Not In File 10/15/20
[2024-10-22 07:45] LABS: Hematocrit 45.1 % (37.0-46.0); Hemoglobin 14.8 g/dL (12.4-15.3); Mean Corpuscular HGB Conc 32.8 g/dL (32-36); Mean Corpuscular Hemoglobin 29.3 pg (27.0-31.0); Mean Corpuscular Volume 89.3 fL (78.0-102.0); Platelet Count Result 177 K/mm3 (150-420); Red Blood Count 5.05 M/mm3 (4.70-6.10); White Blood Count 6.7 K/mm3 (4.8-10.8)
[2024-10-22 07:49] LABS: Add Urine Microscopic? NO; Appearance Urine Clear (Clear); Glucose Urine UA 3+ (Negative); Leukocyte Esterase Ur Negative (Negative); Nitrate Urine Negative (Negative); Specific Grav Ur 1.015 (1.010-1.020)
[2024-10-22 08:00] LABS: Hemoglobin A1C 5.6 % (<5.7)
[2024-10-22 08:32] LABS: Alanine Aminotransferase 28 U/L (6-50); Albumin Level 4.3 g/dL (3.5-5.1); Alkaline Phosphatase 56 U/L (38-126); Anion Gap 8 mmol/L (4-12); Aspartate Amino Transferase 32 U/L (17-59); Bilirubin,Total 1.2 mg/dL (0.2-1.3); Blood Urea Nitrogen 20 mg/dL (9-20); Calcium 9.5 mg/dL (8.4-10.2); Carbon Dioxide 27 mmol/L (22-30); Chloride 104 mmol/L (98-107); Cholesterol 196 mg/dL (0-200); Creatine Kinase 119 U/L (55-170); Estimated Glomerular Filt Rate > 60; Glucose 118 mg/dL (65-110); HDL Direct 66 mg/dL; Osmolality Calculated 291 mOsm/kg (285-295); Potassium 4.7 mmol/L (3.4-5.0); Sodium 139 mmol/L (137-145); Total Protein 6.7 g/dL (6.3-8.2); Triglycerides 108 mg/dL (<150)
[2024-10-22 08:41] LABS: NT Pro B Type Natriuretic Pept 63 pg/mL (19.9-100)
[2024-10-22 08:49] LABS: Free T4 Free Thyroxine 0.95 ng/dL (0.78-2.19)
[2024-10-22 09:03] LABS: Thyroid Stimulating Hormone 1.770 uIU/mL (0.465-4.680)
== END 2024-10-22 07:31 | disposition home or self-care (01) ==
LOC: CHSLAB 07:34
PROVIDERS: PCP Internal Medicine; Visit Provider Internal Medicine
DX: R73.01 Impaired fasting glucose (principal); I10 Essential (primary) hypertension; E78.2 Mixed hyperlipidemia; J44.9 Chronic obstructive pulmonary disease, unspecified; E03.4 Atrophy of thyroid (acquired); I42.9 Cardiomyopathy, unspecified; R06.9 Unspecified abnormalities of breathing
CPT/HCPCS: 36415; 80053; 80061; 81003; 82550; 83036; 83880; 84439; 84443; 85027

== ENCOUNTER 2024-11-30 14:15 | Outpatient (CLI) | payer MEDICARE, SELFPAY ==
--- NOTE | ~2024-11-30 | US_ITS ---
EXAMINATION: US carotid duplex BI DATE: 11/30/2024 15:00 INDICATION: Carotid stenosis. TECHNIQUE: Grayscale, color Doppler, and pulsed Doppler images of the cervical carotid arteries were obtained. The degree of vessel stenosis is placed in one of the following categories: normal, <50%, 50-69%, >=70% but less than near- occlusion, near-occlusion, or total occlusion. Note that percent stenosis relative to normal distal artery lumen diameter is indirectly measured from velocity measurements as described by Prabhakar, et al. Radiology 2003; 229:340-346. COMPARISON: Ultrasound 10/03/2022 FINDINGS: RIGHT: The right common carotid artery (CCA) peak systolic velocity (PSV) is 89 cm/s. The right internal carotid artery (ICA) PSV is 88 cm/s. The right ICA end- diastolic velocity (EDV) is 25 cm/s. The right ICA/CCA PSV ratio is 1.0. Grayscale and color Doppler images yield an estimate of <50% diameter reduction from plaque in the ICA. There is antegrade flow in the right vertebral artery. LEFT: The left CCA PSV is 95 cm/s. The left ICA PSV is 110 cm/s. The left ICA EDV is 34 cm/s. The left ICA/CCA PSV ratio is 1.2. Grayscale and color Doppler images yield an estimate of <50% diameter reduction from plaque in the ICA. There is antegrade flow in the left vertebral artery. IMPRESSION: 1. <50% stenosis in the right internal carotid artery. 2. <50% stenosis in the left internal carotid artery. Reviewed, dictated and finalized at location E.
--- OUTSIDE RECORDS SUMMARY | 2024-11-30 16:34 | XMS_ITS ---
Author Organization [facility] Address [address] [facility] [address] [place] [address] Care Team Providers Care Industrial Retrofit Designer Name Role Phone Sarita Hankins MD Primary Care Provider Massimo Campos MD Unavailable [phone] Miscellaneous, Not In File Unavailable Unava ilable Active Problems Problem Noted Date Diagnosed Date LBBB (left bundle branch block) 04/14/2024 Chronic diastolic congestive heart failure 02/25 Assessment & Plan (02/26/2024 10:41 AM ACCESSIONER): Mild left ventricular systolic dysfunction. There is global hypokinesis. Ejection Fraction is measured at 50 %. Mild concentric left ventricular hypertrophy. (POA) - chronic/compensated on admission - Cont home meds as tolerated - Low dose BB as BP tolerates - SABA on hold BPH (benign prostatic hyperplasia) 02/26/2024 Assessment & Plan (02/28/2024 10:00 AM ACCESSIONER): - cont home meds - dc'd chambers 02/27 Painful respiration 02/26/2024 Acute post-thoracotomy pain 02/26/2024 Mass of left lung 02/25/2024 Assessment & Plan (02/28/2024 10:01 AM ACCESSIONER): S/P LEFT THORACOTOMY, UPPER LOBE WEDGE, PROCEEDED TO LOBECTOMY (Left) - chest tube x 1 to water seal - CXR at 1200 - Dc trish 02/27 - Monitor in OU - home meds as tolerated - PT to see and eval - voice is hoarse at baseline HTN (hypertension) 02/25/2024 Assessment & Plan (02/25/2024 4:34 PM ACCESSIONER): - meds as BP tolerates - BB restarted at lower dose - hold other home BP meds at this time COPD (chronic obstructive pulmonary disease) 10/2024 Assessment & Plan (02/25/2024 4:37 PM ACCESSIONER): - wean O2 as tolerated - Cont home inhalers Larynx cancer 02/25/2024 Assessment & Plan (02/25/2024 4:51 PM ACCESSIONER): - hx larynx cancer - Hoarse at [...]
--- OUTSIDE RECORDS SUMMARY | 2024-11-30 16:34 | XMS_ITS | Encounter Summary ---
Author Organization [facility] Address [address] [facility] [address] [place] [address] Care Team Providers Care Cab Station Attendant Name Role Phone Sarita Hankins MD Primary Care Provider [phone] Massimo Campos MD Unavailable [phone] Miscellaneous, Not In File Unavailable Unava ilable Encounter Details Date Type Department Care Team (Late st Contact Info) Description 03/26/2016 Orders Only Arrhythmia Center ProviderAngela MD [address] [place] [address] Social History Tobacco Use Types Packs/Day Years Used Date Smoking Tobacco: Former Cigarettes Q uit: 02/17/2012 Alcohol Use Standard Drinks/Week Comments Yes 0 (1 standard drink = 0.6 oz pur e alcohol) Sex and Gender Information Value Date Recorded Sex Assigned at Not on file Legal Sex Male 12:34 PM BUYER INTERNSHIP Gender Identity Male 02/03/2022 4:23 PM BUYER INTERNSHIP Sexual Orientation Straight 02/03/2022 4: 23 PM BUYER INTERNSHIP documented as of this encounter Plan of [...] on filedocumented in this encounter Care Teams Cab Station Attendant Relationship Specialty Start Date End Date Sarita Hankins MD [address] [place] [address] PCP - General 03/28/15 Massimo Campos MD [address] [place] [address] Referring Physician Cardiology 03/23/19 Miscellaneous, Not In File 10/15/20 documented as of this encounter
--- OUTSIDE RECORDS SUMMARY | 2024-11-30 16:34 | XMS_ITS | Clinical Summary ---
Author Organization [facility] Building [facility] Address [address] [place] [address] Care Team Providers Care Disability Case Manager Name Role Phone Sarita Hankins MD Primary Care Provider [phone] Massimo Campos MD Unavailable [phone] Miscellaneous, Not In File Unavailable Unava ilable [...] 02/25 Assessment & Plan (02/26/2024 10:41 AM SET UP AND LAY OUT INSPECTOR): Mild left ventricular systolic dysfunction. There is global hypokinesis. Ejection Fraction is measured at 50 %. Mild concentric left ventricular hypertrophy. (POA) - chronic/compensated on admission - Cont home meds as tolerated - Low dose BB as BP tolerates - SABA on hold BPH (benign prostatic hyperplasia) 02/26/2024 Assessment & Plan (02/28/2024 10:00 AM SET UP AND LAY OUT INSPECTOR): - cont home meds - dc'd chambers 02/27 Painful respiration 02/26/2024 Acute post-thoracotomy pain 02/26/2024 Mass of left lung 02/25/2024 Assessment & Plan (02/28/2024 10:01 AM SET UP AND LAY OUT INSPECTOR): S/P LEFT THORACOTOMY, UPPER LOBE WEDGE, PROCEEDED TO LOBECTOMY (Left) - chest tube x 1 to water seal - CXR at 1200 - Dc chambers 02/27 - Monitor in OU - home meds as tolerated - PT to see and eval - voice is hoarse at baseline HTN (hypertension) 02/25/2024 Assessment & Plan (02/25/2024 4:34 PM SET UP AND LAY OUT INSPECTOR): - meds as BP tolerates - BB restarted at lower dose - hold other home BP meds at this time COPD (chronic obstructive pulmonary disease) 10/2024 Assessment & Plan (02/25/2024 4:37 PM SET UP AND LAY OUT INSPECTOR): - wean O2 as tolerated - Cont home inhalers Larynx cancer 02/25/2024 Assessment & Plan (02/25/2024 4:51 PM SET UP AND LAY OUT INSPECTOR): - hx larynx cancer - Hoarse at [...] Encounters Date Type Department Care Team Description 11/07/2024 2:00 PM CDT Ancillary Procedure [facility] [address] [place] [phone] Presence of biventricular automatic cardioverter/defibril lator (AICD) (Primary Dx); NICM (nonischemic cardiomyopathy) (HCC) 11/07/2024 Orders Only Arrhythmia Center [address] [place] [phone] Alvin Monroy III, MD NICM (nonischemic cardiomyopathy) ([facility]) (Primary Dx) from Last 3 Months Immunizations Immunization Administration [...] STJ Quadra Bi-V ICD implanted 08/25/2012 for NICM/CHF/DWDJ-Nlfcnb-Satfvmkfx EP ICD BATTERY ON ADVISORY FOR POTENTIAL [...] on file Legal Sex Male 12:34 PM SET UP AND LAY OUT INSPECTOR Gender Identity Male 02/03/2022 4:23 PM SET UP AND LAY OUT INSPECTOR Sexual Orientation Straight 02/03/2022 4: 23 PM SET UP AND LAY OUT INSPECTOR Obstetrics History Last Filed Vital Signs Vital [...] Visit 65+ 2022 Covid-19 Vaccine (2 - 2024-2 6 season) 2024 05/07/2020 Influenza Vaccine (#1) 2024 , 02/25/2016, 10/06/2014, Additional history exists Fall Risk Assessment 02/28/2025 02/29/2024 DTaP/Tdap/Td Vaccine (2 - Td or Tdap) 02/24/2026 02/25/2016 Zoster Vaccine Completed 02/03/2018, 09/23/2017 Medical Devices Implanted Type Area Gizzard Skin Remover Device Identifier Shelf Expiration Date Model / Serial / Lot [employer] [id number] Quadra Assura Mp [id number] Df-4 Is4 Is-1 Connector [id number] - [id number] - [id number] Implanted:Qty: 1 on 10/15/2020 by Massimo Campos MD at [facility] ICD [employer] [id number] 07/16/2022 [id number] / [id number] / Procedures Procedure Name Priority Date/Time Associated Diagnosis Comments DEVICE CHECK - REMOTE Routine 11/07/2024 11:52 AM CDT NICM (nonischemic cardiomyopathy) (HCC) from Last 3 Months Results * DEVICE CHECK - REMOTE (11/07/2024 11:52 AM CDT) Anatomical Region Laterality Modality Other Narrative 11/08/2024 7:31 AM CDT Table formatting from the original result was not included. BiV ICD CHECK (REMOTE) Patient ID: Jhon Saldana is a 69 y.o. male. This patient received a Perez BiV ICD. They had a routine remote transmission on 11/07/2024 Device implant indications: Nonischemic cardiomyopathy, CHF, LBBB Interrogation of the patient's device demonstrates the following: Presenting EGM: A paced Bi V paced @ 95 bpm Original Device Settings Right Atrium Right Ventricle Left Ventricle Sensitivity (mV) 0.7 mV Auto mV N/a mV Pacing Outputs 2.5 V @ 0.5 ms 2.125 V @ 0.5 ms 2.5 V @ 0.5 ms Testing Measurements Right Atrium Right Ventricle Left Ventricle Sensitivity (mV) 2.1 mV Not done mV N/a mV Impedence (Ohms) 430 ohms 600 ohms 480 ohms Pace Threshold 1.5 V @ 0.5 ms 1.125 V @ 0.5 ms 1.5 V @ 0.5 ms Pacing % 32 % 99 % 99 % HV Lead Impedance N/A 47 ohms N/A Battery Status: 2.4 years to ANDERS, charge time 8.4 seconds. Episodes last 90 days/Comments: AF [place] <1 %,longest duration 42 sec. No ventricular high rates NORMAL DEVICE FUNCTION PROGRAMMED MEDICATIONS: Anti-coagulant(s): Aspirin 81 mg daily Anti-arrhythmic(s): Coreg 25 mg twice a day PLAN: 1) Perez BiV ICD evaluation 2) Perez remote transmission scheduled in 3 months. 3) Programming appropriate for device settings Flores Stevens RN Alvin Monroy III, MD [facility] CARDIAC SERVICES PROCEDURES Final Result from Last 3 Months Insurance MEDICARE [facility] MEDICARE [employer] SENIOR SUPPLEMENT MEDICARE [employer] Advance Directives For more information, please contact: [phone] * Full Code (Latest Code Status on File) Date Activated Date Inactivated Comments 02/25/2024 2:30 PM 02/29/2024 6:49 PM Care Teams Disability Case Manager Relationship Specialty Start Date End Date Sarita Hankins MD [address] [place] [address] PCP - General 03/28/15 Massimo Campos MD [address] [place] [address] Referring Physician Cardiology 03/23/19 Miscellaneous, Not In File 10/15/20
== END 2024-11-30 14:16 | disposition home or self-care (01) ==
PROVIDERS: PCP Internal Medicine; Visit Provider Internal Medicine
DX: I65.23 Occlusion and stenosis of bilateral carotid arteries (principal)
CPT/HCPCS: 93880